=== PATIENT | female | born 1985 | race Hispanic/Latino ===

== ENCOUNTER 2016-12-02 10:45 | Inpatient (IN) | payer MEDICAID ==
[2016-12-02 10:55] VITALS: BMI 32.2
[2016-12-02] MEDS ORDERED: Sodium Chloride 0.9% 1,000 ML IV STA (11:06)
[2016-12-02] MEDS ORDERED: Morphine 4 mg/ml ISec IVP STA (11:06)
[2016-12-02 12:02] LABS: BASO # 0.03 K/mm3 (0.0-2.0); BASO % 0.3 % (0.0-3.0); EOS # 0.3 (0.0-0.7); EOS % 2.9 % (1.5-5.0); GRAN # 4.54 (1.4-6.5); GRAN % 52.8 % (50.0-68.0); HEMOGLOBIN 14.7 gm/dL (12.0-16.0); LYMPH # 3.4 (1.2-3.4); LYMPH % 39.4 % (22.0-35.0); MEAN CELL VOLUME 88.6 fL (80.0-105.0); MEAN CORPUSCULAR HEMOGLOBIN 32.2 pg (25.0-35.0); MEAN CORPUSCULAR HGB CONC 36.4 g/dl (31.0-37.0); MEAN PLATELET VOLUME 10.6 fl (7.0-11.0); MONO # 0.4 (0.1-0.6); MONO % 4.6 % (1.0-6.0); PLATELET COUNT 269 10^3/uL (120.0-450.0); RBC 4.56 10^6/uL (3.5-6.1); RED CELL DISTRIBUTION WIDTH 12.3 % (11.5-14.5); URINE BILIRUBIN NEGATIVE (NEGATIVE); URINE BLOOD LARGE (NEGATIVE); URINE GLUCOSE (UA) NEGATIVE (NEGATIVE); URINE LEUKOCYTE ESTERASE NEGATIVE Leu/uL (NEGATIVE); URINE NITRATE NEGATIVE (NEGATIVE); URINE PROTEIN 30 mg/dL (<30 mg/dL); URINE UROBILINOGEN 0.2 E.U./dL (<1 E.U./dL); WHITE BLOOD COUNT 8.6 10^3/ul (4.5-11.0)
[2016-12-02 12:03] LABS: URINE APPEARANCE TURBID (CLEAR); URINE COLOR YELLOW (YELLOW)
[2016-12-02 12:05] LABS: INR 0.99 (0.93-1.08); PARTIAL THROMBOPLASTIN TIME 27.9 Seconds (23.7-30.8); PROTHROMBIN TIME 10.7 Seconds (9.9-11.8)
[2016-12-02 12:11] LABS: URINE WBC 0 - 2 /hpf (0-6)
[2016-12-02 12:12] LABS: URINE BACTERIA MANY (NEG); URINE EPITHELIAL CELLS MANY /hpf (0-5)
[2016-12-02] MEDS ORDERED: Famotidine 20mg/50ml 20 MG in Premixed IV 50 EA IVPB STA (12:20)
[2016-12-02 12:37] LABS: ALB/GLOB RATIO 1.1 (1.1-1.8); ALBUMIN 3.6 g/dL (3.0-4.8); ALT/SGPT 39 U/L (7-56); AST/SGOT 26 U/L (15-39); BLOOD UREA NITROGEN 8 mg/dL (7-21); CALCIUM 8.5 mg/dL (8.4-10.5); GFR AFRICAN-AMERICAN > 60; GFR NON-AFRICAN AMERICAN > 60; LIPASE 74 U/L (23-300)
--- NOTE | 2016-12-02 14:12 | US ---
HISTORY: epigastric pain, r/o cholecystitis COMPARISON: Abdomen pelvis CT dated yes 06/06/2015. TECHNIQUE: Sonographic evaluation of the abdomen. FINDINGS: LIVER: Measures 14.9 cm. Normal echogenicity of the liver parenchyma. No mass. No intrahepatic bile duct dilatation. GALLBLADDER: Distended but otherwise appearing unremarkable. No gallstones. COMMON BILE DUCT: Measures 1.5 mm. No stones. No dilatation. PANCREAS: The pancreas is obscured by overlying bowel with remainder the pancreas appearing unremarkable. . RIGHT KIDNEY: Measures 10.5cm. Normal echogenicity. No calculus, mass, or hydronephrosis. LEFT KIDNEY: Measures 10.6cm. Normal echogenicity. No calculus, mass, or hydronephrosis. SPLEEN: Normal in size and contour. No mass. AORTA: No aneurysmal dilatation. IVC: Unremarkable. OTHER FINDINGS: None. IMPRESSION: The visualized portion of the pancreas unremarkable with tail obscured by overlying bowel gas. Remainder the examination appears unremarkable.
--- NOTE | 2016-12-02 14:27 | ED PDOC ---
Arrival/HPI - General Chief Complaint: Abdominal Pain Time Seen by Provider: 12/02/16 11:06 Historian: Patient - History of Present Illness Narrative History of Present Illness (Text): 12/02/16 14:36 31 yo F w/ pmh of colitis, s/p appendectomy, c/o 2 day h/o constant sharp epigastric pain radiating to the upper abdomen with N/V/D. Denies any fever, chills, SOB, chest pain, trauma, back pain, urinary symptoms, melena, hematochezia, travel, antibiotic use, h/o GB or PUD disease. Pt reports last episodes of colitis was in 2016, she was admitted to this hospital. States that she is following up with a GI doctor from [place], had a normal endoscopy and colonoscopy last year which was wnl. BARBARA Schaefer from [place] Past Medical History - Provider Review Nursing Documentation Reviewed: Yes - Infectious Disease Hx of Infectious Diseases: None - Tetanus Immunization Tetanus Immunization: Unknown - Past Medical History Past Medical History: No Previous - Cardiac Hx Hypertension: No - Pulmonary Hx Asthma: Yes Hx Pneumonia: Yes (at 2 mo old) - Neurological Hx Seizures: No - HEENT Hx HEENT Disorder: Yes (RX GLASSES) - Renal Hx Renal Disorder: No - Endocrine/Metabolic Hx Endocrine Disorders: No - Hematological/Oncological Hx Cancer: No - Musculoskeletal/Rheumatological Hx Falls: No - Gastrointestinal Hx Gastrointestinal Disorders: Yes (INGUINAL HERNIA REPAIR) - Genitourinary/Gynecological Hx Sexually Transmitted Diseases: No Hx Urinary Tract Infection: Yes Other/Comment: Pt. reports infection 4 months later after D&C procedure. - Psychiatric Hx Depression: No Hx Substance Use: No - Surgical History Hx Appendectomy: Yes (07/01/13) - Anesthesia Hx Anesthesia: Yes Hx Anesthesia Reactions: No Hx Malignant Hyperthermia: No - Suicidal Assessment Feels Threatened In Home Enviroment: No Family/Social History - Physician Review Nursing Documentation Reviewed: Yes Family/Social History: No Known Family HX Smoking Status: Former Smoker Hx Alcohol Use: Yes (socially) Hx Substance Use: No Hx Substance Use Treatment: No Allergies/Home Meds Allergies/Adverse Reactions: Allergies nitrofurantoin Allergy (Verified 12/02/16 11:42) ANAPHYLAXIS nitrofurantoin macrocrystalline [From Macrobid] Allergy (Verified 12/02/16 11:42 ) ANAPHYLAXIS Review of Systems - Review of Systems Constitutional: Normal. absent: Fatigue, Weight Change, Fevers Respiratory: Normal. absent: SOB, Cough, Sputum Cardiovascular: Normal. absent: Chest Pain, Palpitations, Edema Gastrointestinal: Normal, Abdominal Pain, Diarrhea, Vomiting. absent: Appetite Changes, Hematochezia, Hematemesis Genitourinary Female: Normal. absent: Dysuria, Frequency, Hematuria Musculoskeletal: Normal. absent: Arthralgias, Back Pain, Neck Pain Skin: Normal. absent: Rash, Pruritis, Skin Lesions Physical Exam Vital Signs Reviewed: Yes Vital Signs Temp Pulse Resp BP Pulse Ox 12/02/16 15:22 71 16 100/74 12/02/16 12:05 67 18 111/69 98 12/02/16 10:54 98.1 F 102 H 18 130/85 100 Temperature: Afebrile Blood Pressure: Normal Pulse: Tachycardic Respiratory Rate: Normal Appearance: Positive for: Well-Appearing, Non-Toxic, Comfortable Pain Distress: Moderate Mental Status: Positive for: Alert and Oriented X 3 - Systems Exam Head: Present: Atraumatic, Normocephalic Pupils: Present: PERRL Extroacular Muscles: Present: EOMI Conjunctiva: Present: Normal. No: Injected, Icteric Mouth: Present: Dry Pharnyx: Present: Normal. No: ERYTHEMA, EXUDATE Neck: Present: Normal Range of Motion. No: Meningeal Signs, MIDLINE TENDERNESS Respiratory/Chest: Present: Clear to Auscultation, Good Air Exchange. No: Respiratory Distress, Accessory Muscle Use, Wheezes, Rales, Rhonchi Cardiovascular: Present: Regular Rate and Rhythm, Normal S1, S2. No: Murmurs Abdomen: Present: Tenderness (+moderate diffuse abdominal tenderness, greatest in the epigastric area and RUQ, +yarbrough's. ), Normal Bowel Sounds, Guarding. No : Distention, Peritoneal Signs, Rebound, Mass/Organomegaly, Scars Back: Present: Normal Inspection. No: CVA Tenderness, Midline Tenderness Upper Extremity: Present: Normal Inspection, Normal ROM. No: Edema Lower Extremity: Present: Normal Inspection. No: Edema, Tenderness Neurological: Present: GCS=15, CN II-XII Intact Skin: Present: Warm, Dry, Normal Color. No: Rashes Medical Decision Making ED Course and Treatment: 12/02/16 14:25 31 yo F w/ pmh of colitis, c/o 2 day h/o constant sharp epigastric pain radiating to the upper abdomen with N/V/D. Based on history and exam : to r/o cholecystitis, cholelithiasis, consider dyspepsia. Plan: - Labs - UA - IV - pepcid / zofran / morphine - US abdomen - Pt placed in ED observation - Lab Interpretations I have reviewed the lab results: Yes Interpretation: All labs normal - RAD Interpretation Narrative RAD Interpretations (Text): 12/02/16 14:24 US abdomen: FINDINGS: LIVER: Measures 14.9 cm. Normal echogenicity of the liver parenchyma. No mass. No intrahepatic bile duct dilatation. GALLBLADDER: Distended but otherwise appearing unremarkable. No gallstones. COMMON BILE DUCT: Measures 1.5 mm. No stones. No dilatation. PANCREAS: The pancreas is obscured by overlying bowel with remainder the pancreas appearing unremarkable. . RIGHT KIDNEY: Measures 10.5cm. Normal echogenicity. No calculus, mass, or hydronephrosis. LEFT KIDNEY: Measures 10.6cm. Normal echogenicity. No calculus, mass, or hydronephrosis. SPLEEN: Normal in size and contour. No mass. AORTA: No aneurysmal dilatation. IVC: Unremarkable. OTHER FINDINGS: None. IMPRESSION: The visualized portion of the pancreas unremarkable with tail obscured by overlying bowel gas. Remainder the examination appears unremarkable. 12/02/16 17:11 CT A/P w/ IV contrast: FINDINGS: LOWER THORAX: Unremarkable. LIVER: Unremarkable. No gross lesion or ductal dilatation. GALLBLADDER AND BILE DUCTS: Unremarkable. PANCREAS: Unremarkable. No gross lesion or ductal dilatation. SPLEEN: Unremarkable. ADRENALS: Unremarkable. No mass. KIDNEYS AND URETERS: Unremarkable. No hydronephrosis. No solid mass. VASCULATURE: Unremarkable. No aortic aneurysm. BOWEL: There is some chronic mild mural thickening in the colon. There is some fatty infiltration of the bowel wall in the ascending colon. This finding can be seen in chronic inflammatory bowel disease. There is no acute mesenteric inflammation. APPENDIX: Removed PERITONEUM: Unremarkable. No free fluid. No free air. LYMPH NODES: Unremarkable. No enlarged lymph nodes. BLADDER: Unremarkable. REPRODUCTIVE: Unremarkable. BONES: No acute fracture. OTHER FINDINGS: None. IMPRESSION: Chronic mild mural thickening in the colon and fatty infiltration of the bowel wall in the ascending colon consistent with chronic inflammatory bowel disease. No acute mesenteric inflammation - Medication Orders Current Medication Orders: Discontinued Medications Famotidine (Pepcid) 20 mg IVP STAT STA Stop: 12/02/16 11:07 Last Admin: 12/02/16 12:24 Dose: Sodium Chloride (Sodium Chloride 0.9%) 1,000 mls @ 1,000 mls/hr IV .Q1H STA Stop: 12/02/16 12:05 Last Admin: 12/02/16 11:49 Dose: 1,000 mls/hr Famotidine 20 mg/ (Miscellaneous) 50 mls @ 100 mls/hr IVPB STAT STA Stop: 12/02/16 12:49 Last Admin: 12/02/16 12:29 Dose: 100 mls/hr Ketorolac Tromethamine (Toradol) 30 mg IVP STAT STA Stop: 12/02/16 15:03 Last Admin: 12/02/16 15:46 Dose: 30 mg Morphine Sulfate (Morphine) 4 mg IVP STAT STA Stop: 12/02/16 11:07 Last Admin: 12/02/16 11:48 Dose: 4 mg Re-Assess: EZ Pain Assessment Document 12/02/16 12:48 NH (Rec: 12/02/16 15:00 AK [id number]) Pain Reassessment Is this a pain reassessment? Yes Sleep Is patient sleeping during reassessment? No Presence of Pain Presence of Pain Yes Pain Scale Used Pain Scale Used Numeric Location Upper or Lower Upper Pain Location Body Site Abdomen Description Description Sharp Alleviating Factors/Management Medication Techniques Ondansetron HCl (Zofran Inj) 4 mg IVP STAT STA Stop: 12/02/16 11:07 Last Admin: 12/02/16 11:48 Dose: 4 mg ED OBSERVATION Date of observation admission: 12/02/16 Time of observation admission: 11:10 - Observation admission statement Patient is being placed in observation because:: Due to abdominal pain, which will order abdominal US to r/o cholecystitis. - Goals of Observation Goals of observation are:: To monitor pt's signs and symptoms. - Progress Note Progress Note: 12/02/16 13:00 Labs reviewed and are wnl, WBC and LFTs are all normal. Pt with improvement of pain, laying comfortably in bed. Pt sent to US. 12/02/16 14:28 US abdomen is wnl, with no evidence of acute cholecystitis and no cholelithiasis. On re-evaluation, pt reports improvement of pain, she is laying in bed in no acute distress. On exam, abdomen remains soft with moderate diffuse tenderness, no guarding or rebound. Considering pt's history and exam, CT A/P w/ IV contrast was ordered to r/o colitis. Given toradol IV for pain. 12/02/16 17:30 CT results reviewed and d/w the pt in great detail. On re-evaluation, pt continue to complain of pain. On exam, she is in moderate painful distress with abdomen remains soft, not distended, with diffuse abdominal tenderness. Given another dose of morphine 4 mg IV and zofran. Considering's pt's continued pain and PE, will keep the pt for inpt observation. Case d/w Dr. Gutiérrez, she agrees with plan. - PA / [employer]AY GUARD / Resident Statement / has reviewed & agrees with the documentation as recorded. Disposition/Present on Arrival - Present on Arrival Any Indicators Present on Arrival: No History of DVT/PE: No History of Uncontrolled Diabetes: No Urinary Catheter: No History of Decub. Ulcer: No History Surgical Site Infection Following: None - Disposition Have Diagnosis and Disposition been Completed?: Yes Diagnosis: Intractable abdominal pain Disposition: HOSPITALIZED Disposition Time: 11:10 (pt placed in ED observation) Patient Plan: Observation Patient Problems: Current Active Problems Problem Status Onset Abdominal pain Acute Condition: STABLE
--- NOTE | 2016-12-02 16:40 | CT ---
PROCEDURE: CT Abdomen and Pelvis with contrast HISTORY: diffuse abd pain, h/o colitis COMPARISON: None. TECHNIQUE: Contrast dose: 100 cc of Omni 350 Radiation dose: Total exam DLP = 583 mGy-cm. This CT exam was performed using one or more of the following dose reduction techniques: Automated exposure control, adjustment of the mA and/or kV according to patient size, and/or use of iterative reconstruction technique. FINDINGS: LOWER THORAX: Unremarkable. LIVER: Unremarkable. No gross lesion or ductal dilatation. GALLBLADDER AND BILE DUCTS: Unremarkable. PANCREAS: Unremarkable. No gross lesion or ductal dilatation. SPLEEN: Unremarkable. ADRENALS: Unremarkable. No mass. KIDNEYS AND URETERS: Unremarkable. No hydronephrosis. No solid mass. VASCULATURE: Unremarkable. No aortic aneurysm. BOWEL: There is some chronic mild mural thickening in the colon. There is some fatty infiltration of the bowel wall in the ascending colon. This finding can be seen in chronic inflammatory bowel disease. There is no acute mesenteric inflammation. APPENDIX: Removed PERITONEUM: Unremarkable. No free fluid. No free air. LYMPH NODES: Unremarkable. No enlarged lymph nodes. BLADDER: Unremarkable. REPRODUCTIVE: Unremarkable. BONES: No acute fracture. OTHER FINDINGS: None. IMPRESSION: Chronic mild mural thickening in the colon and fatty infiltration of the bowel wall in the ascending colon consistent with chronic inflammatory bowel disease. No acute mesenteric inflammation
--- NOTE | 2016-12-02 18:34 | CP.PCM.HP ---
<KarinSergey - Last Filed: 12/02/16 18:22> History of Present Illness - History of Present Illness History of Present Illness: 31 y/o F with PMH of endometriosis and HLD presents to the ED for a 2 day onset of worsening abdominal pain. Pt states she has had this pain intermittently for the past 3 years, but over the last 2 days the pain had become worse. Pt characterizes the pain as sharp and stabbing. Pain is located in RUQ, LUQ, and in her chest. The pain is intermittent and will randomly come on throughout the day. There are no alleviating or exacerbating factors. Pt did not take any medication at home to help with her symptoms. Pt does admit to having several episodes of nonbilious, nonbloody emesis, along with nonbloody diarrhea. Pt states she had a normal bowel movement 2 days ago and that her bowel movements are regular. Pt also admits to taking azithromycin several weeks ago for a sore throat. She is only compliant with her OCP at home. Pt states she first had these symptoms 3 years ago and at that time she had an appendectomy. Pt has had an endoscopy and colonoscopy in the past, both which were unremarkable for any pathology. Denies SOB, fevers, chills, dizziness, recent travel. PMH: Endometriosis, HLD Surgical Hx: Appendectomy, Hernia repair, LEEP procedure FMH: Breast cancer Social Hx: Denies alcohol, tobacco, or illicit drug use. No menstrual period for last 3 years. Medication: OCP, Atorvastatin 20 mg Allergies: Nitrofurantoin Present on Admission - Present on Admission Any Indicators Present on Admission: No Review of Systems - Constitutional Constitutional: Fatigue. absent: Chills, Fever, Headache - EENT Eyes: absent: Blurred Vision, Change in Vision - Cardiovascular Cardiovascular: Chest Pain. absent: Irregular Heart Rhythm - Respiratory Respiratory: absent: Cough, Dyspnea - Gastrointestinal Gastrointestinal: Abdominal Pain, Diarrhea, Vomiting - Genitourinary Genitourinary: absent: Dysuria, Hematuria - Integumentary Integumentary: absent: New Lesions, Rash - Neurological Neurological: absent: Numbness, Syncope, Tingling - Hematologic/Lymphatic Hematologic: absent: Easy Bleeding, Easy Bruising Past Patient History - Infectious Disease Hx of Infectious Diseases: None - Tetanus Immunizations Tetanus Immunization: Unknown - Past Medical History & Family History Past Medical History?: Yes - Past Social History Smoking Status: Former Smoker - CARDIAC Hx Hypertension: No - PULMONARY Hx Asthma: Yes Hx Pneumonia: Yes (at 2 mo old) - NEUROLOGICAL Hx Seizures: No - HEENT Hx HEENT Problems: Yes (RX GLASSES) - RENAL Hx Chronic Kidney Disease: No - ENDOCRINE/METABOLIC Hx Endocrine Disorders: No - HEMATOLOGICAL/ONCOLOGICAL Hx Cancer: No - MUSCULOSKELETAL/RHEUMATOLOGICAL Hx Falls: No - GASTROINTESTINAL Hx Gastrointestinal Disorders: Yes (INGUINAL HERNIA REPAIR) - GENITOURINARY/GYNECOLOGICAL Hx Sexually Transmitted Disorders: No Hx Urinary Tract Infection: Yes Other/Comment: Pt. reports infection 4 months later after D&C procedure. - PSYCHIATRIC Hx Depression: No Hx Substance Use: No - SURGICAL HISTORY Hx Appendectomy: Yes (07/01/13) - ANESTHESIA Hx Anesthesia: Yes Hx Anesthesia Reactions: No Hx Malignant Hyperthermia: No Meds Allergies/Adverse Reactions: Allergies Allergy/AdvReac Type Severity Reaction Status Date / Time nitrofurantoin Allergy ANAPHYLAXIS Verified 12/02/16 11:42 nitrofurantoin Allergy ANAPHYLAXIS Verified 12/02/16 11:42 macrocrystalline [From Macrobid] Physical Exam - Constitutional Appears: Well, No Acute Distress - Head Exam Head Exam: ATRAUMATIC, NORMAL INSPECTION, NORMOCEPHALIC - Eye Exam Eye Exam: EOMI, Normal appearance, PERRL - ENT Exam ENT Exam: Mucous Membranes Moist, Normal Exam - Neck Exam Neck exam: Positive for: Normal Inspection. Negative for: Lymphadenopathy - Respiratory Exam Respiratory Exam: Clear to Auscultation Bilateral, NORMAL BREATHING PATTERN. absent: Rhonchi, Wheezes - Cardiovascular Exam Cardiovascular Exam: RRR, +S1, +S2 - GI/Abdominal Exam GI & Abdominal Exam: Normal Bowel Sounds, Soft, Tenderness (Tenderness to light palpation diffusely throughout abdomen, mainly RUQ) - Extremities Exam Extremities exam: Negative for: calf tenderness, pedal edema - Neurological Exam Neurological exam: Alert, CN II-XII Intact, Oriented x3 - Psychiatric Exam Psychiatric exam: Normal Affect, Normal Mood - Skin Skin Exam: Intact, Normal Color, Warm Results - Vital Signs Recent Vital Signs: Last Vital Signs Temp 98.1 F 12/02/16 10:54 Pulse 71 12/02/16 15:22 Resp 16 12/02/16 15:22 BP 100/74 12/02/16 15:22 Pulse Ox 98 12/02/16 12:05 - Labs Result Diagrams: 12/02/16 11:38 12/02/16 12:19 Labs: Laboratory Results - last 24 hr 12/02/16 12/02/16 12/02/16 11:38 11:38 11:38 WBC 8.6 RBC 4.56 Hgb 14.7 Hct 40.4 MCV 88.6 MCH 32.2 MCHC 36.4 RDW 12.3 Plt Count 269 MPV 10.6 Gran % 52.8 Lymph % (Auto) 39.4 H [place] % (Auto) 4.6 Eos % (Auto) 2.9 Baso % (Auto) 0.3 Gran # 4.54 Lymph # 3.4 [place] # 0.4 Eos # 0.3 Baso # 0.03 PT 10.7 INR 0.99 APTT 27.9 Sodium Potassium Chloride Carbon Dioxide Anion Gap BUN Creatinine Est GFR ( Amer) Est GFR (Non-Af Amer) Random Glucose Calcium Total Bilirubin AST ALT Alkaline Phosphatase Total Protein Albumin Globulin Albumin/Globulin Ratio Lipase Urine Color Yellow Urine Appearance Turbid Urine pH 6.0 Ur Specific [place] >= 1.030 Urine Protein 30 H Urine Glucose (UA) Negative Urine Ketones Negative Urine Blood Large H Urine Nitrate Negative Urine Bilirubin Negative Urine Urobilinogen 0.2 Ur Leukocyte Esterase Negative Urine RBC 2 - 5 Urine WBC 0 - 2 Ur Epithelial Cells Many Urine Bacteria Many 12/02/16 12:19 WBC RBC Hgb Hct MCV MCH MCHC RDW Plt Count MPV Gran % Lymph % (Auto) [place] % (Auto) Eos % (Auto) Baso % (Auto) Gran # Lymph # [place] # Eos # Baso # PT INR APTT Sodium 140 Potassium 4.1 Chloride 107 Carbon Dioxide 23 Anion Gap 14 BUN 8 Creatinine 0.8 Est GFR ( Amer) > 60 Est GFR (Non-Af Amer) > 60 Random Glucose 84 Calcium 8.5 Total Bilirubin 0.7 AST 26 ALT 39 Alkaline Phosphatase 85 Total Protein 7.0 Albumin 3.6 Globulin 3.3 Albumin/Globulin Ratio 1.1 Lipase 74 Urine Color Urine Appearance Urine pH Ur Specific [place] Urine Protein Urine Glucose (UA) Urine Ketones Urine Blood Urine Nitrate Urine Bilirubin Urine Urobilinogen Ur Leukocyte Esterase Urine RBC Urine WBC Ur Epithelial Cells Urine Bacteria Assessment & Plan - Assessment and Plan (Free Text) Plan: 31 y/o F with PMH of endometriosis and HLD admitted for abdominal pain. Pt received abdominal ultrasound in the ED which showed no evidence of cholecystitis. Abdomen/pelvis CT showed chronic mild mural thickening in colon and fatty infiltration of the bowel wall of the ascending colon consistent with chronic IBD. Pt will be admitted to med/surg and have GI consulted. 1. Abdominal pain: Crohn's disease vs Ulcerative colitis vs Inflammatory bowel syndrome GI Consulted, Dr. Egan NS @ 100 cc/hr Ketorlac for pain Zofran for nausea Will send stool for C. Diff Liquid diet, will advance as tolerated 2. Hx of endometriosis Continue home OCP 3. Hx of HLD Will hold home Atorvastatin at this time, will restart when able to tolerate PO adequately 4. PPX Protonix Heparin Zofran Seen, reviewed, and discussed with attending Karin, PGY-2 <Chioma Lopez - Last Filed: 12/05/16 12:23> Results - Vital Signs Recent Vital Signs: Last Vital Signs Temp 97.9 F 12/04/16 08:31 Pulse 85 12/04/16 08:31 Resp 20 12/04/16 08:31 BP 123/85 12/04/16 08:31 Pulse Ox 99 12/04/16 08:31 - Labs Result Diagrams: 12/03/16 06:00 12/03/16 06:00 Attending/Attestation - Attestation I have fully participated in the care of the patient.: Yes I have reviewed all pertinent clinical information: Yes Notes (Text): 12/05/16 12:19 attending note; Patient seen and examined with resident in ER. Patient is a 31 year old Female with PMH of endometriosis and HLD admitted for abdominal pain. abdominal ultrasound showed no evidence of cholecystitis. Abdomen/pelvis CT showed chronic mild mural thickening in colon and fatty infiltration of the bowel wall of the ascending colon. patient had significant pain. Started on IV fluids. Nothing by mouth. GI evaluation requested. Patient needs close follow-up upon discharge. Follow-up with PMD Dr. Schaefer.
[2016-12-02] MEDS: Sodium Chloride 0.9% 1,000 ML IV SCH (18:50)
[2016-12-02 19:58] VITALS: O2SAT 99
[2016-12-03] MEDS: Sodium Chloride 0.9% 1,000 ML IV SCH ×2 (05:29→13:56)
[2016-12-03 06:49] LABS: ALBUMIN 3.1 g/dL (3.0-4.8); ALT/SGPT 34 U/L (7-56); AST/SGOT 23 U/L (15-39); BLOOD UREA NITROGEN 6 mg/dL (7-21); CALCIUM 7.8 mg/dL (8.4-10.5); GFR AFRICAN-AMERICAN > 60; GFR NON-AFRICAN AMERICAN > 60
[2016-12-03 06:59] LABS: HEMOGLOBIN 12.1 gm/dL (12.0-16.0); MEAN CELL VOLUME 89.3 fL (80.0-105.0); MEAN CORPUSCULAR HEMOGLOBIN 30.8 pg (25.0-35.0); MEAN CORPUSCULAR HGB CONC 34.5 g/dl (31.0-37.0); MEAN PLATELET VOLUME 10.1 fl (7.0-11.0); RBC 3.93 10^6/uL (3.5-6.1); RED CELL DISTRIBUTION WIDTH 12.5 % (11.5-14.5); WHITE BLOOD COUNT 7.2 10^3/ul (4.5-11.0)
--- NOTE | 2016-12-03 07:48 | CP.PCM.CON ---
<SamBob - Last Filed: 12/03/16 18:37> History of Present Illness - History of Present Illness History of Present Illness: PGY4 GI Initial Consult note Mary Kay Sánchez is a 31F w/ hx of endometrosis and recurrent abd pain who presents to Ed with abd pain. Pt states that the onset was 2 days ago and it awoke her from sleep. Pt states that it was initially tolerable but eventually worsened. She notes that it started in her pelvic area and radiated to RUQ and LUQ. She attempted to go to work the following morning but her symptoms worsened. She describes her pain has intermittent with peaks to about 10 out of 10 when she first presented. She does not recall any alleviating or aggravating factors. She notes that she occasionally feel slightly better after BM. Pt notes that this type of pain has been occurring for the past months to years. She has had a colonoscopy and EGD at [facility] in [facility] last, which she believes did not reveal anything diagnostic. Denies any recent travel, fever, chills, or diaphoresis. Denies nay BRBPR, hematemsis, or melena. Her initial CT of the abd revealed chronic mild mural thickening of the ascending and fatty infiltration. She decribes her BM as soft and form. She has reg BM 2-3 times a day. Denies any diarrhea, blood or mucus. ROS: 12- point review discusses, neg other than what is mentioned above PMH: Endometriosis, HLD Surgical Hx: Appendectomy, Hernia repair, LEEP procedure FMH: Breast cancer Social Hx: Denies alcohol, tobacco, or illicit drug use. No menstrual period for last 3 years. Medication: OCP, Atorvastatin 20 mg Allergies: Nitrofurantoin Endoscopy hx: 2016 colon and EGD: neg as per pt, performed at [facility] in [facility] Past Patient History - Infectious Disease Hx of Infectious Diseases: None - Tetanus Immunizations Tetanus Immunization: Unknown - Past Medical History & Family History Past Medical History?: Yes - Past Social History Smoking Status: Never Smoked - CARDIAC Hx Hypertension: No - PULMONARY Hx Respiratory Disorders: Yes Hx Asthma: Yes Hx Pneumonia: Yes - NEUROLOGICAL Hx Seizures: No - HEENT Hx HEENT Problems: Yes (RX GLASSES) - RENAL Hx Chronic Kidney Disease: No - ENDOCRINE/METABOLIC Hx Endocrine Disorders: No - HEMATOLOGICAL/ONCOLOGICAL Hx Cancer: Yes - MUSCULOSKELETAL/RHEUMATOLOGICAL Hx Falls: No - GASTROINTESTINAL Other/Comment: Colitis - GENITOURINARY/GYNECOLOGICAL Other/Comment: Endometriosis - PSYCHIATRIC Hx Substance Use: No - SURGICAL HISTORY Hx Appendectomy: Yes - ANESTHESIA Hx Anesthesia: Yes Hx Anesthesia Reactions: No Hx Malignant Hyperthermia: No Meds Allergies/Adverse Reactions: Allergies Allergy/AdvReac Type Severity Reaction Status Date / Time nitrofurantoin Allergy ANAPHYLAXIS Verified 12/02/16 11:42 nitrofurantoin Allergy ANAPHYLAXIS Verified 12/02/16 11:42 macrocrystalline [From Macrobid] - Medications Medications: Current Medications Heparin Sodium (Porcine) (Heparin) 5,000 units SC Q8 JOSE PRN Reason: Protocol Last Admin: 12/03/16 05:46 Dose: 5,000 units Sodium Chloride (Sodium Chloride 0.9%) 1,000 mls @ 100 mls/hr IV .Q10H [facility] Last Admin: 12/03/16 05:29 Dose: 100 mls/hr Ketorolac Tromethamine (Toradol) 30 mg IVP Q6H PRN PRN Reason: Pain, severe (8-10) Last Admin: 12/03/16 03:10 Dose: 30 mg Ondansetron HCl (Zofran Inj) 4 mg IVP Q4H PRN PRN Reason: Nausea/Vomiting Pantoprazole Sodium (Protonix Inj) 40 mg IVP DAILY [facility] Last Admin: 12/02/16 18:50 Dose: 40 mg Physical Exam - Constitutional Appears: Well, Non-toxic - Head Exam Head Exam: ATRAUMATIC, NORMOCEPHALIC - Eye Exam Eye Exam: Normal appearance - ENT Exam ENT Exam: Mucous Membranes Moist, Normal Exam - Neck Exam Neck exam: Positive for: Normal Inspection - Respiratory Exam Respiratory Exam: Clear to Auscultation Bilateral, NORMAL BREATHING PATTERN. absent: Rales, Rhonchi, Wheezes - Cardiovascular Exam Cardiovascular Exam: REGULAR RHYTHM, +S1, +S2 - GI/Abdominal Exam GI & Abdominal Exam: Normal Bowel Sounds, Soft, Tenderness (in the RUQ and LUQ) . absent: Distended, Firm, Guarding, Rigid - Extremities Exam Extremities exam: Positive for: normal inspection - Neurological Exam Neurological exam: Alert, Oriented x3 - Psychiatric Exam Psychiatric exam: Normal Affect, Normal Mood - Skin Skin Exam: Dry, Intact, Normal Color, Warm Results - Vital Signs Recent Vital Signs: Last Vital Signs Temp 98.1 F 12/02/16 21:49 Pulse 75 12/02/16 21:49 Resp 18 12/02/16 21:49 BP 123/75 12/02/16 21:49 Pulse Ox 99 12/02/16 19:57 - Labs Result Diagrams: 12/03/16 06:00 12/03/16 06:00 Labs: Laboratory Results - last 24 hr 12/02/16 12/02/16 12/02/16 11:38 11:38 11:38 WBC 8.6 RBC 4.56 Hgb 14.7 Hct 40.4 MCV 88.6 MCH 32.2 MCHC 36.4 RDW 12.3 Plt Count 269 MPV 10.6 Gran % 52.8 Lymph % (Auto) 39.4 H [place] % (Auto) 4.6 Eos % (Auto) 2.9 Baso % (Auto) 0.3 Gran # 4.54 Lymph # 3.4 [place] # 0.4 Eos # 0.3 Baso # 0.03 PT 10.7 INR 0.99 APTT 27.9 Sodium Potassium Chloride Carbon Dioxide Anion Gap BUN Creatinine Est GFR ( Amer) Est GFR (Non-Af Amer) Random Glucose Calcium Total Bilirubin AST ALT Alkaline Phosphatase Total Protein Albumin Globulin Albumin/Globulin Ratio Lipase Urine Color Yellow Urine Appearance Turbid Urine pH 6.0 Ur Specific Garvin >= 1.030 Urine Protein 30 H Urine Glucose (UA) Negative Urine Ketones Negative Urine Blood Large H Urine Nitrate Negative Urine Bilirubin Negative Urine Urobilinogen 0.2 Ur Leukocyte Esterase Negative Urine RBC 2 - 5 Urine WBC 0 - 2 Ur Epithelial Cells Many Urine Bacteria Many 12/02/16 12/03/16 12/03/16 12:19 06:00 06:00 WBC 7.2 RBC 3.93 Hgb 12.1 Hct 35.1 L MCV 89.3 MCH 30.8 MCHC 34.5 RDW 12.5 Plt Count 220 MPV 10.1 Gran % Lymph % (Auto) [place] % (Auto) Eos % (Auto) Baso % (Auto) Gran # Lymph # [place] # Eos # Baso # PT INR APTT 27.3 Sodium 140 Potassium 4.1 Chloride 107 Carbon Dioxide 23 Anion Gap 14 BUN 8 Creatinine 0.8 Est GFR ( Amer) > 60 Est GFR (Non-Af Amer) > 60 Random Glucose 84 Calcium 8.5 Total Bilirubin 0.7 AST 26 ALT 39 Alkaline Phosphatase 85 Total Protein 7.0 Albumin 3.6 Globulin 3.3 Albumin/Globulin Ratio 1.1 Lipase 74 Urine Color Urine Appearance Urine pH Ur Specific Garvin Urine Protein Urine Glucose (UA) Urine Ketones Urine Blood Urine Nitrate Urine Bilirubin Urine Urobilinogen Ur Leukocyte Esterase Urine RBC Urine WBC Ur Epithelial Cells Urine Bacteria 12/03/16 06:00 WBC RBC Hgb Hct MCV MCH MCHC RDW Plt Count MPV Gran % Lymph % (Auto) [place] % (Auto) Eos % (Auto) Baso % (Auto) Gran # Lymph # [place] # Eos # Baso # PT INR APTT Sodium 138 Potassium 3.9 Chloride 107 Carbon Dioxide 22 Anion Gap 13 BUN 6 L Creatinine 0.8 Est GFR ( Amer) > 60 Est GFR (Non-Af Amer) > 60 Random Glucose 87 Calcium 7.8 L Total Bilirubin 0.5 AST 23 ALT 34 Alkaline Phosphatase 71 Total Protein 6.1 Albumin 3.1 Globulin 3.0 Albumin/Globulin Ratio 1.0 L Lipase Urine Color Urine Appearance Urine pH Ur Specific Garvin Urine Protein Urine Glucose (UA) Urine Ketones Urine Blood Urine Nitrate Urine Bilirubin Urine Urobilinogen Ur Leukocyte Esterase Urine RBC Urine WBC Ur Epithelial Cells Urine Bacteria Assessment & Plan - Assessment and Plan (Free Text) Assessment: Mary Kay Sánchez is a 31F w/ hx of endometriosis and chronic abd pain who presents with abd pain. Etiology of the pain is acute on chronic and unclear. DDx: IBD vs functional vs colitis vs endometrial pain. Abd pain, acute on chronic DDx: IBD vs functional vs endometrial pain -advance diet as tolerated -obtain records from outpt GI -Hold abx for now -check c.diff and stool cultures -Will likely need a repeat outpt colonoscopy and endoscopy -follow-up with established GI -Pain management as per primary team -okay to d/c from GI standpoint d/w Dr. Egan <Vinnie Egan - Last Filed: 12/03/16 19:28> Meds - Medications Medications: Current Medications Heparin Sodium (Porcine) (Heparin) 5,000 units SC Q8 JOSE PRN Reason: Protocol Last Admin: 12/03/16 13:18 Dose: 5,000 units Sodium Chloride (Sodium Chloride 0.9%) 1,000 mls @ 100 mls/hr IV .Q10H [facility] Last Admin: 12/03/16 13:56 Dose: 100 mls/hr Ketorolac Tromethamine (Toradol) 30 mg IVP Q6H PRN PRN Reason: Pain, severe (8-10) Last Admin: 12/03/16 03:10 Dose: 30 mg Ondansetron HCl (Zofran Inj) 4 mg IVP Q4H PRN PRN Reason: Nausea/Vomiting Pantoprazole Sodium (Protonix Inj) 40 mg IVP DAILY [facility] Last Admin: 12/03/16 09:15 Dose: 40 mg Results - Vital Signs Recent Vital Signs: Last Vital Signs Temp 97.2 F L 12/03/16 16:00 Pulse 83 12/03/16 16:00 Resp 20 12/03/16 16:00 BP 115/77 12/03/16 16:00 Pulse Ox 99 12/03/16 16:00 - Labs Result Diagrams: 12/03/16 06:00 12/03/16 06:00 Attending/Attestation - Attestation I have personally seen and examined this patient.: Yes I have fully participated in the care of the patient.: Yes I have reviewed all pertinent clinical information: Yes Notes (Text): 12/03/16 19:25 31 year old female with h/o fibroids, endometriosis, chronic abdominal pain admitted with recurrent pain, CT evidence of right sided colitis. 1. Chronic abdominal pain 2. 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
[2016-12-03 08:14] VITALS: RESP 20
--- NOTE | 2016-12-03 14:41 | CP.PCM.CON ---
History of Present Illness - History of Present Illness History of Present Illness: Hospital Course: 31 y/o F with PMH of endometriosis and HLD presents to the ED for a 2 day onset of worsening abdominal pain. Pt states she has had this pain intermittently for the past 3 years, but over the last 2 days the pain had become worse. Pt characterizes the pain as sharp and stabbing. Pain is located in RUQ, LUQ, and in her chest. The pain is intermittent and will randomly come on throughout the day. There are no alleviating or exacerbating factors. Pt did not take any medication at home to help with her symptoms. Pt does admit to having several episodes of nonbilious, nonbloody emesis, along with nonbloody diarrhea. Pt states she had a normal bowel movement 2 days ago and that her bowel movements are regular. Pt also admits to taking azithromycin several weeks ago for a sore throat. She is only compliant with her OCP at home. Pt states she first had these symptoms 3 years ago and at that time she had an appendectomy. Pt has had an endoscopy and colonoscopy in the past, both which were unremarkable for any pathology. Denies SOB, fevers, chills, dizziness, recent travel. HPI: Pt s/e at bedside. Patient is still complaining of RUQ, Epigastric, and LUQ tenderness, both at rest and TTP. Patient further states that she had 3 bouts of diarrhea this morning. Patient would like to eat, we are waiting for GI recommendations. Review of Systems - Hematologic/Lymphatic Additional comments: ROS: Constitutional: pt denies fever, chills, generalized weakness ENT: pt denies dysphagia, otalgia, hearing deficit, rhinorrhea Eyes: pt denies sudden loss of vision, diplopia, blurred vision MSK: pt denies muscle stiffness, joint pain, extremity cramping Cardio: pt denies sob, heart murmur, cp Pulm: pt denies cough, hemoptysis, wheeze GI: +See hpi; pt denies loss of appetite, hematochezia : pt denies burning on urination, urinary frequency, hematuria, urinary urgency Neuro: pt denies paresis, paresthesia, dizziness, baxter, numbness, tingling Derm: pt denies skin changes, lesions, nail changes Endo: pt denies intolerance to heat/cold, diaphoresis, night sweats, polydipsia Psych: pt denies anxiety, depression, mood changes Past Patient History - Infectious Disease Hx of Infectious Diseases: None - Tetanus Immunizations Tetanus Immunization: Unknown - Past Medical History & Family History Past Medical History?: Yes - Past Social History Smoking Status: Never Smoked - CARDIAC Hx Hypertension: No - PULMONARY Hx Respiratory Disorders: Yes Hx Asthma: Yes Hx Pneumonia: Yes - NEUROLOGICAL Hx Seizures: No - HEENT Hx HEENT Problems: Yes (RX GLASSES) - RENAL Hx Chronic Kidney Disease: No - ENDOCRINE/METABOLIC Hx Endocrine Disorders: No - HEMATOLOGICAL/ONCOLOGICAL Hx Cancer: Yes - MUSCULOSKELETAL/RHEUMATOLOGICAL Hx Falls: No - GASTROINTESTINAL Other/Comment: Colitis - GENITOURINARY/GYNECOLOGICAL Other/Comment: Endometriosis - PSYCHIATRIC Hx Substance Use: No - SURGICAL HISTORY Hx Appendectomy: Yes - ANESTHESIA Hx Anesthesia: Yes Hx Anesthesia Reactions: No Hx Malignant Hyperthermia: No Meds Allergies/Adverse Reactions: Allergies Allergy/AdvReac Type Severity Reaction Status Date / Time nitrofurantoin Allergy ANAPHYLAXIS Verified 12/02/16 11:42 nitrofurantoin Allergy ANAPHYLAXIS Verified 12/02/16 11:42 macrocrystalline [From Macrobid] - Medications Medications: Current Medications Heparin Sodium (Porcine) (Heparin) 5,000 units SC Q8 JOSE PRN Reason: Protocol Last Admin: 12/03/16 13:18 Dose: 5,000 units Sodium Chloride (Sodium Chloride 0.9%) 1,000 mls @ 100 mls/hr IV .Q10H [facility] Last Admin: 12/03/16 13:56 Dose: 100 mls/hr Ketorolac Tromethamine (Toradol) 30 mg IVP Q6H PRN PRN Reason: Pain, severe (8-10) Last Admin: 12/03/16 03:10 Dose: 30 mg Ondansetron HCl (Zofran Inj) 4 mg IVP Q4H PRN PRN Reason: Nausea/Vomiting Pantoprazole Sodium (Protonix Inj) 40 mg IVP DAILY [facility] Last Admin: 12/03/16 09:15 Dose: 40 mg Physical Exam - Additional Findings Additional findings: Phys Exam: VS as below Constitutional: obese female, a&o x 4, nad Head and Neck: neck supple, no jvd, trachea midline, carotid midline, no cervical/head mass Eyes: pernell, nonicteric sclera, eom intact ENT: auditory acuity grossly intact, throat not congested, no nasal deformity Cardio: rrr, no m/r/g, no carotid bruit, nml s1, s2 Pulm: no accessory muscle use, equal nml breath sounds bilaterally, ctab Abd: +TTP RUQ, LUQ, Epigastric; s/nd, nbs x 4 q, no palpable masses : +Right Pelvic Tenderness Derm: no rashes, no ulcers, no lesions Extr: no edema, no cyanosis, no calf tenderness, no lesions, no varicosities Neuro: cn II-XII grossly intact, ue and le 5/5 muscle strength bilaterally, no los ue, le bilaterally and core Results - Vital Signs Recent Vital Signs: Last Vital Signs Temp 97.8 F 12/03/16 08:13 Pulse 68 12/03/16 12:00 Resp 20 12/03/16 08:13 BP 120/78 12/03/16 12:00 Pulse Ox 99 12/03/16 08:13 - Labs Result Diagrams: 12/03/16 06:00 12/03/16 06:00 Assessment & Plan - Assessment and Plan (Free Text) Assessment: A/P 31 y/o F with PMH of endometriosis and HLD admitted for abdominal pain. Pt received abdominal ultrasound in the ED which showed no evidence of cholecystitis. Abdomen/pelvis CT showed chronic mild mural thickening in colon and fatty infiltration of the bowel wall of the ascending colon consistent with chronic IBD. Pt is admitted to med/surg with GI consulted. 1. Acute on Chronic Abdominal pain 2/2 Colitis VS Crohn's disease VS Ulcerative colitis VS Inflammatory bowel syndrome VS endometrial pain VS functional - GI Consulted, Dr. Egan: recs appreciated - Per GI - advance diet as tolerated, obtain outpatient GI records, hold Abx, check c. diff and stool, outpatient endoscopy and colonoscopy, and pain management - Advanced to soft diet - NS @ 100 cc/hr - Ketorolac for pain - Zofran for nausea - Will send stool for C. Diff 2. Hemoglobin and HCT trending down - LMP: - Hg/HCT on admission: 14.7/40.4 - Hb/HCT now: 12.1/35.1 - Trend Hgb/HCT (baseline: ~14/40 3. 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 Hx of endometriosis - Continue home OCP 5. Hx of HLD - Restart atorvastatin 20 6. PPX - Protonix - Heparin - Zofran Seen, reviewed, and discussed with attending, Dr. Berry
--- NOTE | 2016-12-03 14:52 | CP.PCM.PN ---
<BradySohail - Last Filed: 12/03/16 14:52> Subjective - Date & Time of Evaluation Date of Evaluation: 12/03/16 Time of Evaluation: 07:00 - Subjective Subjective: Please disregard previous consult note by same author Hospital Course: 31 y/o F with PMH of endometriosis and HLD presents to the ED for a 2 day onset of worsening abdominal pain. Pt states she has had this pain intermittently for the past 3 years, but over the last 2 days the pain had become worse. Pt characterizes the pain as sharp and stabbing. Pain is located in RUQ, LUQ, and in her chest. The pain is intermittent and will randomly come on throughout the day. There are no alleviating or exacerbating factors. Pt did not take any medication at home to help with her symptoms. Pt does admit to having several episodes of nonbilious, nonbloody emesis, along with nonbloody diarrhea. Pt states she had a normal bowel movement 2 days ago and that her bowel movements are regular. Pt also admits to taking azithromycin several weeks ago for a sore throat. She is only compliant with her OCP at home. Pt states she first had these symptoms 3 years ago and at that time she had an appendectomy. Pt has had an endoscopy and colonoscopy in the past, both which were unremarkable for any pathology. Denies SOB, fevers, chills, dizziness, recent travel. HPI: Pt s/e at bedside. Patient is still complaining of RUQ, Epigastric, and LUQ tenderness, both at rest and TTP. Patient further states that she had 3 bouts of diarrhea this morning. Patient would like to eat, we are waiting for GI recommendations. Objective - Vital Signs/Intake and Output Vital Signs (last 24 hours): Temp Pulse Resp BP Pulse Ox 97.8 F 68 20 120/78 99 12/03/16 08:13 12/03/16 12:00 12/03/16 08:13 12/03/16 12:00 12/03/16 08:13 - Medications Medications: Current Medications Heparin Sodium (Porcine) (Heparin) 5,000 units SC Q8 JOSE PRN Reason: Protocol Last Admin: 12/03/16 13:18 Dose: 5,000 units Sodium Chloride (Sodium Chloride 0.9%) 1,000 mls @ 100 mls/hr IV .Q10H [facility] Last Admin: 12/03/16 13:56 Dose: 100 mls/hr Ketorolac Tromethamine (Toradol) 30 mg IVP Q6H PRN PRN Reason: Pain, severe (8-10) Last Admin: 12/03/16 03:10 Dose: 30 mg Ondansetron HCl (Zofran Inj) 4 mg IVP Q4H PRN PRN Reason: Nausea/Vomiting Pantoprazole Sodium (Protonix Inj) 40 mg IVP DAILY [facility] Last Admin: 12/03/16 09:15 Dose: 40 mg - Labs Labs: PT 10.7 Seconds (9.9-11.8) 12/02/16 11:38 INR 0.99 (0.93-1.08) 12/02/16 11:38 APTT 27.3 Seconds (23.7-30.8) 12/03/16 06:00 - Additional Findings Additional findings: Phys Exam: VS as below Constitutional: obese female, a&o x 4, nad Head and Neck: neck supple, no jvd, trachea midline, carotid midline, no cervical/head mass Eyes: pernell, nonicteric sclera, eom intact ENT: auditory acuity grossly intact, throat not congested, no nasal deformity Cardio: rrr, no m/r/g, no carotid bruit, nml s1, s2 Pulm: no accessory muscle use, equal nml breath sounds bilaterally, ctab Abd: +TTP RUQ, LUQ, Epigastric; s/nd, nbs x 4 q, no palpable masses : +Right Pelvic Tenderness Derm: no rashes, no ulcers, no lesions Extr: no edema, no cyanosis, no calf tenderness, no lesions, no varicosities Neuro: cn II-XII grossly intact, ue and le 5/5 muscle strength bilaterally, no los ue, le bilaterally and core Assessment and Plan - Assessment and Plan (Free Text) Assessment: A/P 31 y/o F with PMH of endometriosis and HLD admitted for abdominal pain. Pt received abdominal ultrasound in the ED which showed no evidence of cholecystitis. Abdomen/pelvis CT showed chronic mild mural thickening in colon and fatty infiltration of the bowel wall of the ascending colon consistent with chronic IBD. Pt is admitted to med/surg with GI consulted. 1. Acute on Chronic Abdominal pain 2/2 Colitis VS Crohn's disease VS Ulcerative colitis VS Inflammatory bowel syndrome VS endometrial pain VS functional - GI Consulted, Dr. Egan: recs appreciated - Per GI - advance diet as tolerated, obtain outpatient GI records, hold Abx, check c. diff and stool, outpatient endoscopy and colonoscopy, and pain management - Advanced to soft diet - NS @ 100 cc/hr - Ketorolac for pain - Zofran for nausea - Will send stool for C. Diff 2. 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 Hx of endometriosis - Continue home OCP 5. Hx of HLD - Restart atorvastatin 20 6. PPX - Protonix - Heparin - Zofran Sohail Abreu DO PGY - 1 Seen, reviewed, and discussed with attending, Dr. Berry <Jamal GOLDBERG,[facility] - Last Filed: 12/03/16 15:02> Objective - Vital Signs/Intake and Output Vital Signs (last 24 hours): Temp Pulse Resp BP Pulse Ox 97.8 F 68 20 120/78 99 12/03/16 08:13 12/03/16 12:00 12/03/16 08:13 12/03/16 12:00 12/03/16 08:13 - Medications Medications: Current Medications Heparin Sodium (Porcine) (Heparin) 5,000 units SC Q8 JOSE PRN Reason: Protocol Last Admin: 12/03/16 13:18 Dose: 5,000 units Sodium Chloride (Sodium Chloride 0.9%) 1,000 mls @ 100 mls/hr IV .Q10H [facility] Last Admin: 12/03/16 13:56 Dose: 100 mls/hr Ketorolac Tromethamine (Toradol) 30 mg IVP Q6H PRN PRN Reason: Pain, severe (8-10) Last Admin: 12/03/16 03:10 Dose: 30 mg Ondansetron HCl (Zofran Inj) 4 mg IVP Q4H PRN PRN Reason: Nausea/Vomiting Pantoprazole Sodium (Protonix Inj) 40 mg IVP DAILY [facility] Last Admin: 12/03/16 09:15 Dose: 40 mg - Labs Labs: PT 10.7 Seconds (9.9-11.8) 12/02/16 11:38 INR 0.99 (0.93-1.08) 12/02/16 11:38 APTT 27.3 Seconds (23.7-30.8) 12/03/16 06:00 Attending/Attestation - Attestation I have personally seen and examined this patient.: Yes I have fully participated in the care of the patient.: Yes I have reviewed all pertinent clinical information, including history, physical exam and plan: Yes Notes (Text): 12/03/16 14:56 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 Agreed with resident assessment and plan. 31 yrs F with PMH of endometriosis and HLD admitted for abdominal pain. Pt received abdominal ultrasound in the ED which showed no evidence of cholecystitis. Abdomen/pelvis CT showed chronic mild mural thickening in colon and fatty infiltration of the bowel wall of the ascending colon.Patient is still c/o diarrhea, stools for C diff colitis is negative, stool cultures are pending.As per patient she had Colonoscopy one year back which was normal, we will try to get patient medical record, will hold of antibiotics as recommended by GI.Patient is tolerating liquid diet at this time. Management plan was discussed in detail with patient Education was provided.
[2016-12-04] MEDS: Sodium Chloride 0.9% 1,000 ML IV SCH ×2 (06:06→12:44)
--- NOTE | 2016-12-04 08:11 | CP.PCM.PN ---
<Bob Vargas - Last Filed: 12/04/16 08:13> Subjective - Date & Time of Evaluation Date of Evaluation: 12/04/16 Time of Evaluation: 08:00 - Subjective Subjective: PGY4 GI follow-up Pt seen and examined bedside No overnight events able to tolerate reg diet does not have any abd pain Denies any fever, chills, or diaphoresis Denies any diarrhea 12-point ROS was conducted was was neg other than what was mentioned above Objective - Vital Signs/Intake and Output Vital Signs (last 24 hours): Temp Pulse Resp BP Pulse Ox 97.2 F L 83 20 115/77 99 12/03/16 16:00 12/03/16 16:00 12/03/16 16:00 12/03/16 16:00 12/03/16 16:00 Intake and Output: 12/04/16 12/04/16 06:59 18:59 Intake Total 1200 Balance 1200 - Medications Medications: Current Medications Heparin Sodium (Porcine) (Heparin) 5,000 units SC Q8 JOSE PRN Reason: Protocol Last Admin: 12/04/16 06:06 Dose: Not Given Sodium Chloride (Sodium Chloride 0.9%) 1,000 mls @ 100 mls/hr IV .Q10H [facility] Last Admin: 12/04/16 06:06 Dose: Not Given Ketorolac Tromethamine (Toradol) 30 mg IVP Q6H PRN PRN Reason: Pain, severe (8-10) Last Admin: 12/03/16 03:10 Dose: 30 mg Ondansetron HCl (Zofran Inj) 4 mg IVP Q4H PRN PRN Reason: Nausea/Vomiting Pantoprazole Sodium (Protonix Inj) 40 mg IVP DAILY [facility] Last Admin: 12/03/16 09:15 Dose: 40 mg - Labs Labs: PT 10.7 Seconds (9.9-11.8) 12/02/16 11:38 INR 0.99 (0.93-1.08) 12/02/16 11:38 APTT 27.3 Seconds (23.7-30.8) 12/03/16 06:00 - Head Exam Head Exam: ATRAUMATIC, NORMOCEPHALIC - Eye Exam Eye Exam: Normal appearance - ENT Exam ENT Exam: Mucous Membranes Moist, Normal Exam - Respiratory Exam Respiratory Exam: Clear to Ausculation Bilateral, NORMAL BREATHING PATTERN. absent: Rales, Rhonchi, Wheezes - Cardiovascular Exam Cardiovascular Exam: REGULAR RHYTHM, +S1, +S2 - GI/Abdominal Exam GI & Abdominal Exam: Soft, Normal Bowel Sounds. absent: Distended, Firm, Guarding, Tenderness, Organomegaly - Extremities Exam Extremities Exam: absent: Tenderness - Neurological Exam Neurological Exam: Alert, Awake, Oriented x3 - Psychiatric Exam Psychiatric exam: Normal Affect, Normal Mood - Skin Skin Exam: Dry, Intact, Normal Color, Warm Assessment and Plan - Assessment and Plan (Free Text) Assessment: 31 year old female with h/o fibroids, endometriosis, chronic abdominal pain admitted with recurrent pain, CT evidence of right sided colitis with no clear etiology. 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 Wu <Bryce GOLDBERG,Aditi - Last Filed: 12/04/16 14:33> Objective - Vital Signs/Intake and Output Vital Signs (last 24 hours): Temp Pulse Resp BP Pulse Ox 97.9 F 85 20 123/85 99 12/04/16 08:31 12/04/16 08:31 12/04/16 08:31 12/04/16 08:31 12/04/16 08:31 Intake and Output: 12/04/16 12/04/16 06:59 18:59 Intake Total 1200 Balance 1200 - Medications Medications: Current Medications Heparin Sodium (Porcine) (Heparin) 5,000 units SC Q8 JOSE PRN Reason: Protocol Last Admin: 12/04/16 13:17 Dose: Not Given Sodium Chloride (Sodium Chloride 0.9%) 1,000 mls @ 100 mls/hr IV .Q10H [facility] Last Admin: 12/04/16 12:44 Dose: Not Given Ketorolac Tromethamine (Toradol) 30 mg IVP Q6H PRN PRN Reason: Pain, severe (8-10) Last Admin: 12/03/16 03:10 Dose: 30 mg Ondansetron HCl (Zofran Inj) 4 mg IVP Q4H PRN PRN Reason: Nausea/Vomiting Pantoprazole Sodium (Protonix Inj) 40 mg IVP DAILY [facility] Last Admin: 12/04/16 09:32 Dose: 40 mg - Labs Labs: PT 10.7 Seconds (9.9-11.8) 12/02/16 11:38 INR 0.99 (0.93-1.08) 12/02/16 11:38 APTT 27.3 Seconds (23.7-30.8) 12/03/16 06:00 Attending/Attestation - Attestation I have personally seen and examined this patient.: Yes I have fully participated in the care of the patient.: Yes I have reviewed all pertinent clinical information, including history, physical exam and plan: Yes Notes (Text): 12/04/16 14:31 Patient seen with GI fellow on rounds. This is a 31 year old female with h/o fibroids, endometriosis, chronic abdominal pain admitted with recurrent pain, CT evidence of right sided colitis with no diarrhea, nor leukocytosis. Abdominal pain improved. Tolerating diet. Has had 2 colonoscopies in the past. Continue hormonal therapy for endometriosis and follow with outpatient GI. Thank you for letting us participate in the care of your patient
[2016-12-04 08:32] VITALS: BP 123/85; PULSE 85; TEMP 97.9
== END 2016-12-04 15:07 | disposition home or self-care (01) | DRG 814 ==
LOC: ED 10:45 → EROBSV 11:10 → ERH 18:03 → 3RSO 21:00 → OBSVTOIN 12-03 11:30
PROVIDERS: ADMIT Hospitalist; ATTEND Internal Medicine
DX: K52.9 Noninfective gastroenteritis and colitis, unspecified (principal); G89.29 Other chronic pain; E78.5 Hyperlipidemia, unspecified; N80.9 Endometriosis, unspecified; E66.9 Obesity, unspecified; Z90.49 Acquired absence of other specified parts of digestive tract; Z87.891 Personal history of nicotine dependence; Z80.3 Family history of malignant neoplasm of breast

== ENCOUNTER 2017-06-03 13:56 | Emergency (ER) | payer MEDICAID, OTHER ==
[2017-06-03 13:56] VITALS: BMI 32.2
[2017-06-03 15:11] VITALS: RESP 18
[2017-06-03] MEDS ORDERED: Sodium Chloride 0.9% 1,000 ML IV STA (15:22)
--- NOTE | 2017-06-03 15:27 | ED PDOC ---
Arrival/HPI - General Chief Complaint: Abdominal Pain Time Seen by Provider: 06/03/17 15:20 Historian: Patient - History of Present Illness Narrative History of Present Illness (Text): 06/03/17 15:24 31 y/o female, pmh including colitis and endometriosis, allergic to macrobid, surgical history of appendectomy, c/o upper abdominal pain with nausea/vomiting on and off x 1 week. Pt. stated that she has epigastric abdominal pain, radiating to her throat, no tearing sensation, no fever or chills, no flank pain , no numbness or tingling, no urinary symptoms, no palpitation, unable to have outpatient gallbladder sonogram, no other medical or psychological complaints. Past Medical History - Provider Review Nursing Documentation Reviewed: Yes - Infectious Disease Hx of Infectious Diseases: None - Tetanus Immunization Tetanus Immunization: Unknown - Past Medical History Past Medical History: No Previous - Cardiac Hx Hypertension: No - Pulmonary Hx Respiratory Disorders: Yes Hx Asthma: Yes Hx Pneumonia: Yes - Neurological Hx Seizures: No - HEENT Hx HEENT Disorder: Yes (RX GLASSES) - Renal Hx Renal Disorder: No - Endocrine/Metabolic Hx Endocrine Disorders: No - Hematological/Oncological Hx Cancer: Yes - Musculoskeletal/Rheumatological Hx Falls: No - Gastrointestinal Other/Comment: Colitis - Genitourinary/Gynecological Other/Comment: Endometriosis - Psychiatric Hx Depression: No Hx Substance Use: No - Surgical History Hx Appendectomy: Yes - Anesthesia Hx Anesthesia: Yes Hx Anesthesia Reactions: No Hx Malignant Hyperthermia: No - Suicidal Assessment Feels Threatened In Home Enviroment: No Family/Social History - Physician Review Nursing Documentation Reviewed: Yes Family/Social History: Unknown Family HX Smoking Status: Never Smoked Hx Alcohol Use: No Hx Substance Use: No Hx Substance Use Treatment: No Allergies/Home Meds Allergies/Adverse Reactions: Allergies nitrofurantoin Allergy (Verified 06/03/17 15:05) ANAPHYLAXIS nitrofurantoin macrocrystalline [From Macrobid] Allergy (Verified 06/03/17 15:05 ) ANAPHYLAXIS Review of Systems - Review of Systems Constitutional: absent: Fatigue, Fevers Eyes: absent: Vision Changes ENT: absent: Hearing Changes Respiratory: absent: SOB, Cough Cardiovascular: absent: Chest Pain Gastrointestinal: Abdominal Pain, Nausea, Vomiting. absent: Diarrhea Musculoskeletal: absent: Arthralgias Skin: absent: Rash, Pruritis Neurological: absent: Headache Psychiatric: absent: Anxiety, Depression, Suicidal Ideation Physical Exam Vital Signs Reviewed: Yes Vital Signs Pulse Resp BP Pulse Ox 06/03/17 20:49 74 18 110/78 98 06/03/17 18:06 75 18 105/70 100 06/03/17 15:10 87 18 107/59 L 98 Temperature: Afebrile Pulse: Regular Respiratory Rate: Normal Appearance: Positive for: Well-Appearing, Non-Toxic Pain Distress: Moderate Mental Status: Positive for: Alert and Oriented X 3 - Systems Exam Head: Present: Atraumatic, Normocephalic Pupils: Present: PERRL Extroacular Muscles: Present: EOMI Conjunctiva: Present: Normal Mouth: Present: Moist Mucous Membranes Neck: Present: Normal Range of Motion Respiratory/Chest: Present: Clear to Auscultation, Good Air Exchange. No: Respiratory Distress, Accessory Muscle Use Cardiovascular: Present: Regular Rate and Rhythm, Normal S1, S2. No: Murmurs Abdomen: Present: Tenderness (+epigastric tenderness and upper abdominal tenderness. ), Normal Bowel Sounds. No: Distention, Peritoneal Signs Back: Present: Normal Inspection Upper Extremity: Present: Normal Inspection. No: Cyanosis, Edema Lower Extremity: Present: Normal Inspection. No: Edema Neurological: Present: GCS=15, Speech Normal, Motor Func Grossly Intact, Gait Normal, Memory Normal Skin: Present: Warm, Dry, Normal Color. No: Rashes Psychiatric: Present: Alert, Oriented x 3, Normal Insight, Normal Concentration Medical Decision Making ED Course and Treatment: 06/03/17 15:27 -labs/ua/lipase/magnesium -gallbladder sonogram -CT abdomen and pelvis IV -IVF/pepcid/reglan -Observe and reassess 06/03/17 20:13 -Urine hcg negative -Labs are non-significant -UA show +UTI, IV rocephine ordered. -Gallbladder sonogram: No evidence of cholelithiasis or cholecystitis. Unremarkable examination. -Chest xray: No active disease. -CT abdomen and pelvis: No evidence of acute colitis, enteritis or bowel obstruction. Left adnexal cyst measuring 4.1 x 3.1 cm. Small follicles the right adnexa. -Transvaginal sonogram show: Within the posterior uterine wall, there is a submucosal hypoechoic fibroid measuring 1.5 x 1.3 x 1.6 cm. Within the left ovary, there is a 2.4 x 2.6 x 2.2 cm complex cyst with internal septation and mild echogenic debris. Follow-up ultrasonography is recommended. There is minimal hypoechoic fluid within the endocervical canal. A small hypoechoic nabothian cyst is visualized at the level of the cervix. -Pain resolved, feeling much better, will discharge home. -Discharge home with keflex, nexium, zofran, acetaminophen, follow up with your own pmd and obgyn plus GI within 2 days, return to the ER for any new or worsening signs or symptoms. - Lab Interpretations Lab Results: 06/03/17 15:50 06/03/17 15:50 Lab Results 06/03/17 15:50: Sodium 139, Potassium 3.8, Chloride 104, Carbon Dioxide 26, Anion Gap 13, BUN 10, Creatinine 0.8, Est GFR ( Amer) > 60, Est GFR (Non- Af Amer) > 60, Random Glucose 80, Calcium 9.6, Magnesium 2.0, Total Bilirubin 0.6, AST 48 H, ALT 51, Alkaline Phosphatase 74, Lactate Dehydrogenase 547, Total Creatine Kinase 90, Troponin I < 0.01, Total Protein 7.5, Albumin 4.3, Globulin 3.2, Albumin/Globulin Ratio 1.3, Lipase 86 06/03/17 15:50: WBC 11.2 H D, RBC 4.29, Hgb 13.9, Hct 39.2, MCV 91.4, MCH 32.4, MCHC 35.5, RDW 12.7, Plt Count 274, MPV 10.7, Gran % 55.1, Lymph % (Auto) 36.8 H , [place] % (Auto) 5.4, Eos % (Auto) 2.3, Baso % (Auto) 0.4, Gran # 6.14, Lymph # 4.1 H, [place] # 0.6, Eos # 0.3, Baso # 0.05 06/03/17 15:30: Urine Color Dark yellow, Urine Appearance Sl cloudy, Urine pH 6.0, Ur Specific [place] >= 1.030, Urine Protein Trace H, Urine Glucose (UA) Negative, Urine Ketones Negative, Urine Blood Small H, Urine Nitrate Positive H , Urine Bilirubin Negative, Urine Urobilinogen 0.2, Ur Leukocyte Esterase Trace H, Urine RBC 0 - 2, Urine WBC 1 - 3, Ur Epithelial Cells Many, Calcium Oxalate Crystal Few, Urine Bacteria Many I have reviewed the lab results: Yes - RAD Interpretation Radiology Orders: 06/03/17 15:22 ABD & PELVIS IV CONTRAST ONLY [CT] Stat GALL BLADDER [US] Stat 06/03/17 15:25 CHEST TWO VIEWS (PA/LAT) [RAD] Stat 06/03/17 18:07 TRANSVAGINAL [US] Stat Chest xray: HISTORY: medical clearance COMPARISON: No prior. TECHNIQUE: Chest PA and lateral FINDINGS: LUNGS: No active pulmonary disease. PLEURA: No significant pleural effusion identified. No pneumothorax apparent. CARDIOVASCULAR: Normal. OSSEOUS STRUCTURES: No significant abnormalities. VISUALIZED UPPER ABDOMEN: Normal. OTHER FINDINGS: None. IMPRESSION: No active disease. Gallbladder sonogram: HISTORY: epigastric abdominal pain x 1 week COMPARISON: None. TECHNIQUE: Sonographic evaluation of the right upper quadrant of the abdomen. FINDINGS: LIVER: Measures 16.1 cm in length. Normal echogenicity of the liver parenchyma. No mass. No intrahepatic bile duct dilatation. GALLBLADDER: Unremarkable. No gallstones. COMMON BILE DUCT: Measures 3.0 mm. No stones. No dilatation. PANCREAS: Unremarkable as visualized. No mass. No ductal dilatation. RIGHT KIDNEY: Measures 10 point a cm in length. Normal echogenicity. No calculus, mass, or hydronephrosis. AORTA: No aneurysmal dilatation. IVC: Unremarkable. OTHER FINDINGS: None . IMPRESSION: No evidence of cholelithiasis or cholecystitis. Unremarkable examination. CT abdomen and pelvis: PROCEDURE: CT Abdomen and Pelvis with contrast HISTORY: radiating upper abdominal pain/vomiting x 1 week COMPARISON: 12/02/2016 CT abdomen and pelvis 06/03/2017 right upper quadrant ultrasound TECHNIQUE: Contrast dose: 100 cc Omnipaque 350 Radiation dose: Total exam DLP = 418.54 mGy-cm. This CT exam was performed using one or more of the following dose reduction techniques: Automated exposure control, adjustment of the mA and/or kV according to patient size, and/or use of iterative reconstruction technique. FINDINGS: LOWER THORAX: Unremarkable. LIVER: Unremarkable. No gross lesion or ductal dilatation. GALLBLADDER AND BILE DUCTS: Unremarkable. PANCREAS: Unremarkable. No gross lesion or ductal dilatation. SPLEEN: Unremarkable. ADRENALS: Unremarkable. No mass. KIDNEYS AND URETERS: Unremarkable. No hydronephrosis. No solid mass. VASCULATURE: Unremarkable. No aortic aneurysm. BOWEL: Evidence of chronic inflammatory bowel disease primarily affecting ascending colon and transverse colon with relative sparing of descending colon. Similar distribution, less pronounced changes identified on the prior CT APPENDIX: Prior appendectomy. Clips at the base of the cecum. PERITONEUM: Unremarkable. No free fluid. No free air. LYMPH NODES: Unremarkable. No enlarged lymph nodes. BLADDER: Unremarkable. REPRODUCTIVE: Septated cyst/contiguous cysts left adnexa. Probable small follicles right adnexa. Unremarkable uterus. BONES: No acute fracture. OTHER FINDINGS: None. IMPRESSION: No evidence of acute colitis, enteritis or bowel obstruction. Left adnexal cyst measuring 4.1 x 3.1 cm. Small follicles the right adnexa. Transvaginal sonogram: Ultrasound TRANSVAGINAL Exam Date: 06/03/17 This imaging exam was performed at [facility] EXAM: US Pelvis Complete, Transabdominal US Pelvis, Transvaginal EXAM DATE/TIME: 06/03/2017 6:07 PM CLINICAL HISTORY: The patient age is 31 years old and is female; Pain; Abdominal pain; Left lower quadrant; Additional info: Lt. Cyst 4.1cm? ? Facility exam id and description: Us transve transvaginal TECHNIQUE: Real-time transabdominal and transvaginal pelvic ultrasound (complete) with image documentation. Transvaginal imaging was used for better evaluation of the endometrium and adnexa. COMPARISON: CT - ABD PELVIS IV CONTRAST ONLY 06/03/2017 5:19:09 PM, US - TRANSVAGINAL 10/19/2016 10:23:26 AM report only. These ultrasound images were not available for review. FINDINGS: Uterus/cervix: Within the posterior uterine wall, there is a submucosal hypoechoic fibroid measuring 1.5 x 1.3 x 1.6 cm. There is minimal hypoechoic fluid within the endocervical canal. A small hypoechoic nabothian cyst is visualized at the level of the cervix. The uterus measures 9.1 x 4.2 x 4.4 cm. The endometrial stripe measures 3-4 mm in thickness, which is within normal limits. The endometrial stripe measures 3-4 mm, which is within normal limits. There is a tiny hyperechoic focus in the submucosal region, suggestive of calcification. Right ovary: The right ovary measures 2.5 x 1.4 x 2.2 cm. Hypoechoic follicles are seen within the right ovary. There is physiologic blood flow within the right ovary. Left ovary: Within the left ovary, there is a 2.4 x 2.6 x 2.2 cm complex cyst with internal septation and mild echogenic debris. The left ovary measures 4.1 x 4.0 x 3.4 cm. There is physiologic blood flow within the left ovary. Free fluid: No free fluid. Bladder: Wall is normal thickness for degree of distention. IMPRESSION: 1. Within the posterior uterine wall, there is a submucosal hypoechoic fibroid measuring 1.5 x 1.3 x 1.6 cm. 2. Within the left ovary, there is a 2.4 x 2.6 x 2.2 cm complex cyst with internal septation and mild echogenic debris. Follow-up ultrasonography is recommended. 3. There is minimal hypoechoic fluid within the endocervical canal. A small hypoechoic nabothian cyst is visualized at the level of the cervix. 4. Additional findings described above. Dictated By: Mauricio Eduardo MD, MD Dictated Date/Time: 06/03/172006 Signed By: Mauricio Anderson MD Date Signed: 2006 Transcribed By: LOUIS Transcribe Date/Time : 06/03/172006 Automation Design Engineer: Radiologist - Medication Orders Current Medication Orders: Discontinued Medications Famotidine (Pepcid) 20 mg IVP STAT STA Stop: 06/03/17 15:30 Last Admin: 06/03/17 18:02 Dose: 20 mg IVP Administration Document 06/03/17 18:02 LA (Rec: 06/03/17 18:02 LA [id number]) Charges for Administration # of IVP Administrations 1 Sodium Chloride (Sodium Chloride 0.9%) 1,000 mls @ 999 mls/hr IV .Q1H1M STA Stop: 06/03/17 16:22 Last Admin: 06/03/17 18:03 Dose: 999 mls/hr eMAR Start Stop Document 06/03/17 18:03 LA (Rec: 06/03/17 18:03 LA [id number]) Intravenous Solution Start Date 06/03/17 Start Time 18:03 Ceftriaxone Sodium (Rocephin 1 Gram Ivpb) 1 gm in 100 mls @ 200 mls/hr IVPB STAT STA PRN Reason: Protocol Stop: 06/03/17 18:36 Last Admin: 06/03/17 18:10 Dose: 200 mls/hr eMAR Start Stop Document 06/03/17 18:10 LA (Rec: 06/03/17 19:42 LA [id number]) Intravenous Solution Start Date 06/03/17 Start Time 18:07 Metoclopramide HCl (Reglan) 10 mg IVP STAT STA Stop: 06/03/17 15:23 Last Admin: 06/03/17 18:02 Dose: 10 mg IVP Administration Document 06/03/17 18:02 LA (Rec: 06/03/17 18:03 LA [id number]) Charges for Administration # of IVP Administrations 1 Pantoprazole Sodium (Protonix Ec Tab) 40 mg PO STAT STA Stop: 06/03/17 20:23 Last Admin: 06/03/17 20:55 Dose: 40 mg - PA / HUMAN RESOURCES CLERK / Resident Statement / has reviewed & agrees with the documentation as recorded. Disposition/Present on Arrival - Present on Arrival Any Indicators Present on Arrival: No History of DVT/PE: No History of Uncontrolled Diabetes: No Urinary Catheter: No History of Decub. Ulcer: No History Surgical Site Infection Following: None - Disposition Have Diagnosis and Disposition been Completed?: Yes Diagnosis: UTI (urinary tract infection), Epigastric abdominal pain, Uterine fibroid, Ovarian cyst Disposition: HOME/ ROUTINE Disposition Time: 20:24 Patient Plan: Discharge Condition: IMPROVED Additional Instructions: -Discharge home with keflex, nexium, zofran, acetaminophen, follow up with your own pmd and obgyn plus GI within 2 days, return to the ER for any new or worsening signs or symptoms. Prescriptions: Acetaminophen 2 tab PO QID PRN #30 tab PRN Reason: Other Cephalexin [cephalexin] 500 mg PO TID #21 cap Esomeprazole Magnesium [Nexium] 20 mg PO DAILY #14 ecc Ondansetron [Zofran] 4 mg PO Q8H PRN #10 tab PRN Reason: Nausea/Vomiting Referrals: Alisia Schaefer MD [Primary Care Provider] - Follow up with primary [facility] [Outside] - Follow up with primary Aditi Wu MD, MD [Medical Doctor] - Follow up with primary Babatunde Childress MD [Staff Provider] - Follow up with primary Forms: [facility] (Macedonian), WORK NOTE
[2017-06-03 16:00] LABS: URINE BILIRUBIN NEGATIVE (NEGATIVE); URINE BLOOD SMALL (NEGATIVE); URINE GLUCOSE (UA) NEGATIVE (NEGATIVE); URINE LEUKOCYTE ESTERASE TRACE Leu/uL (NEGATIVE); URINE NITRATE POSITIVE (NEGATIVE); URINE PROTEIN TRACE mg/dL (<30 mg/dL); URINE UROBILINOGEN 0.2 E.U./dL (<1 E.U./dL)
[2017-06-03 16:05] LABS: URINE COLOR DARK YELLOW (YELLOW)
[2017-06-03 16:06] LABS: URINE APPEARANCE SL CLOUDY (CLEAR)
[2017-06-03 16:12] LABS: URINE BACTERIA MANY (NEG); URINE CALCIUM OXALATE CRYSTALS FEW /hpf; URINE EPITHELIAL CELLS MANY /hpf (0-5); URINE RBC 0 - 2 /hpf (0-2)
[2017-06-03 16:13] LABS: ALB/GLOB RATIO 1.3 (1.1-1.8); ALBUMIN 4.3 g/dL (3.0-4.8); ALT/SGPT 51 U/L (7-56); AST/SGOT 48 U/L (14-36); BLOOD UREA NITROGEN 10 mg/dL (7-21); CALCIUM 9.6 mg/dL (8.4-10.5); GFR AFRICAN-AMERICAN > 60; GFR NON-AFRICAN AMERICAN > 60; LIPASE 86 U/L (23-300)
[2017-06-03 16:14] LABS: BASO # 0.05 K/mm3 (0.0-2.0); BASO % 0.4 % (0.0-3.0); EOS # 0.3 (0.0-0.7); EOS % 2.3 % (1.5-5.0); GRAN # 6.14 (1.4-6.5); GRAN % 55.1 % (50.0-68.0); HEMOGLOBIN 13.9 g/dL (12.0-16.0); LYMPH # 4.1 (1.2-3.4); LYMPH % 36.8 % (22.0-35.0); MEAN CELL VOLUME 91.4 fl (80.0-105.0); MEAN CORPUSCULAR HEMOGLOBIN 32.4 pg (25.0-35.0); MEAN CORPUSCULAR HGB CONC 35.5 g/dl (31.0-37.0); MEAN PLATELET VOLUME 10.7 fl (7.0-11.0); MONO # 0.6 (0.1-0.6); MONO % 5.4 % (1.0-6.0); RBC 4.29 10^6/uL (3.5-6.1); RED CELL DISTRIBUTION WIDTH 12.7 % (11.5-14.5); WHITE BLOOD COUNT 11.2 10^3/ul (4.5-11.0)
[2017-06-03 16:25] LABS: TROPONIN I < 0.01 ng/mL
[2017-06-03] MEDS ORDERED: Iohexol 350 MG/100 ML VIAL ONE (16:40)
--- NOTE | 2017-06-03 16:54 | US ---
HISTORY: epigastric abdominal pain x 1 week COMPARISON: None. TECHNIQUE: Sonographic evaluation of the right upper quadrant of the abdomen. FINDINGS: LIVER: Measures 16.1 cm in length. Normal echogenicity of the liver parenchyma. No mass. No intrahepatic bile duct dilatation. GALLBLADDER: Unremarkable. No gallstones. COMMON BILE DUCT: Measures 3.0 mm. No stones. No dilatation. PANCREAS: Unremarkable as visualized. No mass. No ductal dilatation. RIGHT KIDNEY: Measures 10 point a cm in length. Normal echogenicity. No calculus, mass, or hydronephrosis. AORTA: No aneurysmal dilatation. IVC: Unremarkable. OTHER FINDINGS: None . IMPRESSION: No evidence of cholelithiasis or cholecystitis. Unremarkable examination.
--- NOTE | 2017-06-03 17:55 | RAD ---
HISTORY: medical clearance COMPARISON: No prior. TECHNIQUE: Chest PA and lateral FINDINGS: LUNGS: No active pulmonary disease. PLEURA: No significant pleural effusion identified. No pneumothorax apparent. CARDIOVASCULAR: Normal. OSSEOUS STRUCTURES: No significant abnormalities. VISUALIZED UPPER ABDOMEN: Normal. OTHER FINDINGS: None. IMPRESSION: No active disease.
--- NOTE | 2017-06-03 18:04 | CT ---
PROCEDURE: CT Abdomen and Pelvis with contrast HISTORY: radiating upper abdominal pain/vomiting x 1 week COMPARISON: 12/02/2016 CT abdomen and pelvis 06/03/2017 right upper quadrant ultrasound TECHNIQUE: Contrast dose: 100 cc Omnipaque 350 Radiation dose: Total exam DLP = 418.54 mGy-cm. This CT exam was performed using one or more of the following dose reduction techniques: Automated exposure control, adjustment of the mA and/or kV according to patient size, and/or use of iterative reconstruction technique. FINDINGS: LOWER THORAX: Unremarkable. LIVER: Unremarkable. No gross lesion or ductal dilatation. GALLBLADDER AND BILE DUCTS: Unremarkable. PANCREAS: Unremarkable. No gross lesion or ductal dilatation. SPLEEN: Unremarkable. ADRENALS: Unremarkable. No mass. KIDNEYS AND URETERS: Unremarkable. No hydronephrosis. No solid mass. VASCULATURE: Unremarkable. No aortic aneurysm. BOWEL: Evidence of chronic inflammatory bowel disease primarily affecting ascending colon and transverse colon with relative sparing of descending colon. Similar distribution, less pronounced changes identified on the prior CT APPENDIX: Prior appendectomy. Clips at the base of the cecum. PERITONEUM: Unremarkable. No free fluid. No free air. LYMPH NODES: Unremarkable. No enlarged lymph nodes. BLADDER: Unremarkable. REPRODUCTIVE: Septated cyst/contiguous cysts left adnexa. Probable small follicles right adnexa. Unremarkable uterus. BONES: No acute fracture. OTHER FINDINGS: None. IMPRESSION: No evidence of acute colitis, enteritis or bowel obstruction. Left adnexal cyst measuring 4.1 x 3.1 cm. Small follicles the right adnexa.
[2017-06-03] MEDS ORDERED: cefTRIAXone 1 gm 1 GM/100 ML BAG IVPB STA (18:07)
--- NOTE | 2017-06-03 20:08 | US ---
EXAM: US Pelvis Complete, Transabdominal US Pelvis, Transvaginal EXAM DATE/TIME: 06/03/2017 6:07 PM CLINICAL HISTORY: The patient age is 31 years old and is female; Pain; Abdominal pain; Left lower quadrant; Additional info: Lt. Cyst 4.1cm? ? Facility exam id and description: Us transve transvaginal TECHNIQUE: Real-time transabdominal and transvaginal pelvic ultrasound (complete) with image documentation. Transvaginal imaging was used for better evaluation of the endometrium and adnexa. COMPARISON: CT - ABD PELVIS IV CONTRAST ONLY 06/03/2017 5:19:09 PM, US - TRANSVAGINAL 10/19/2016 10:23:26 AM report only. These ultrasound images were not available for review. FINDINGS: Uterus/cervix: Within the posterior uterine wall, there is a submucosal hypoechoic fibroid measuring 1.5 x 1.3 x 1.6 cm. There is minimal hypoechoic fluid within the endocervical canal. A small hypoechoic nabothian cyst is visualized at the level of the cervix. The uterus measures 9.1 x 4.2 x 4.4 cm. The endometrial stripe measures 3-4 mm in thickness, which is within normal limits. The endometrial stripe measures 3-4 mm, which is within normal limits. There is a tiny hyperechoic focus in the submucosal region, suggestive of calcification. Right ovary: The right ovary measures 2.5 x 1.4 x 2.2 cm. Hypoechoic follicles are seen within the right ovary. There is physiologic blood flow within the right ovary. Left ovary: Within the left ovary, there is a 2.4 x 2.6 x 2.2 cm complex cyst with internal septation and mild echogenic debris. The left ovary measures 4.1 x 4.0 x 3.4 cm. There is physiologic blood flow within the left ovary. Free fluid: No free fluid. Bladder: Wall is normal thickness for degree of distention. IMPRESSION: 1. Within the posterior uterine wall, there is a submucosal hypoechoic fibroid measuring 1.5 x 1.3 x 1.6 cm. 2. Within the left ovary, there is a 2.4 x 2.6 x 2.2 cm complex cyst with internal septation and mild echogenic debris. Follow-up ultrasonography is recommended. 3. There is minimal hypoechoic fluid within the endocervical canal. A small hypoechoic nabothian cyst is visualized at the level of the cervix. 4. Additional findings described above.
[2017-06-03] MEDS ORDERED: Pantoprazole 40 mg EC Tab PO STA (20:22)
[2017-06-04 02:05] VITALS: BP 110/78; PULSE 74; O2SAT 98
== END 2017-06-03 20:49 | disposition home or self-care (01) ==
LOC: ED 13:56
DX: N39.0 Urinary tract infection, site not specified (principal); D25.9 Leiomyoma of uterus, unspecified; R10.13 Epigastric pain; N83.202 Unspecified ovarian cyst, left side
CPT/HCPCS: 71046; 74177; 76705; 76830; 80053; 81001; 82550; 83615; 83690; 83735; 84484; 85025; 87086; 96374; 96375; 99284; J0696; J2765; J7040; Q9967

== ENCOUNTER 2017-12-09 17:25 | Emergency (ER) | payer OTHER ==
[2017-12-09 17:49] VITALS: BP 109/74; PULSE 81; RESP 18; TEMP 97.7; O2SAT 100; BMI 31.2
--- NOTE | 2017-12-09 17:56 | ED PDOC ---
Arrival/HPI - General Chief Complaint: ENT Problem Time Seen by Provider: 12/09/17 17:43 Historian: Patient - History of Present Illness Narrative History of Present Illness (Text): 12/09/17 17:53 32 yo F c/o small painful lump to the anterior aspect of her L ear x3-4 days. Denies any ear pain, fever, URI, sore throat, headache, neck pain or rash. Past Medical History - Infectious Disease Hx of Infectious Diseases: None - Tetanus Immunization Tetanus Immunization: Unknown - Past Medical History Past Medical History: No Previous - Cardiac Hx Hypertension: No - Pulmonary Hx Respiratory Disorders: Yes Hx Asthma: Yes Hx Pneumonia: Yes - Neurological Hx Seizures: No - HEENT Hx HEENT Disorder: Yes (RX GLASSES) - Renal Hx Renal Disorder: No - Endocrine/Metabolic Hx Endocrine Disorders: No - Hematological/Oncological Hx Cancer: Yes - Musculoskeletal/Rheumatological Hx Falls: No - Gastrointestinal Other/Comment: Colitis - Genitourinary/Gynecological Other/Comment: Endometriosis - Psychiatric Hx Depression: No Hx Substance Use: No - Surgical History Hx Appendectomy: Yes - Anesthesia Hx Anesthesia: Yes Hx Anesthesia Reactions: No Hx Malignant Hyperthermia: No - Suicidal Assessment Feels Threatened In Home Enviroment: No Family/Social History Family/Social History: No Known Family HX Smoking Status: Never Smoked Hx Alcohol Use: No Hx Substance Use: No Hx Substance Use Treatment: No Allergies/Home Meds Allergies/Adverse Reactions: Allergies nitrofurantoin Allergy (Verified 06/03/17 15:05) ANAPHYLAXIS nitrofurantoin macrocrystalline [From Macrobid] Allergy (Verified 06/03/17 15:05 ) ANAPHYLAXIS Home Medications: Home Meds Medication Instructions Recorded Confirmed No Known Home Med 12/09/17 12/09/17 Review of Systems - Review of Systems Constitutional: absent: Fatigue, Weight Change, Fevers Eyes: absent: Vision Changes, Photophobia, Eye Pain ENT: absent: Hearing Changes, Tinnitus, Voice Changes, Sore Throat, Rhinorrhea, Epistaxis, Sinus Congestion Respiratory: absent: SOB, Cough, Sputum Skin: Skin Lesions. absent: Rash, Pruritis Neurological: absent: Headache, Dizziness Physical Exam Vital Signs Temp Pulse Resp BP Pulse Ox 12/09/17 18:00 97.7 F 81 18 109/74 100 12/09/17 17:39 97.7 F 81 18 109/74 100 Temperature: Afebrile Blood Pressure: Normal Pulse: Regular Respiratory Rate: Normal Appearance: Positive for: Well-Appearing, Non-Toxic, Comfortable Pain Distress: None Mental Status: Positive for: Alert and Oriented X 3 - Systems Exam Head: Present: Atraumatic, Normocephalic, Other (+0.5 cm round tender mobile mass to the L preauricular area, without erythema or edema) Pupils: Present: PERRL Extroacular Muscles: Present: EOMI Conjunctiva: Present: Normal. No: Injected, Icteric Ears: Present: Normal, NORMAL TM, Normal Canal. No: Erythema, TM Bulging Mouth: Present: Moist Mucous Membranes Pharnyx: Present: Normal. No: ERYTHEMA, EXUDATE Neck: Present: Normal Range of Motion. No: Meningeal Signs, MIDLINE TENDERNESS , Paraspinal Tenderness, Lymphadenopathy Upper Extremity: Present: Normal Inspection. No: Cyanosis, Edema Lower Extremity: Present: Normal Inspection. No: Edema Neurological: Present: GCS=15, CN II-XII Intact, Speech Normal, Motor Func Grossly Intact, Normal Sensory Function Skin: Present: Warm, Dry, Normal Color. No: Rashes, Laceration, Abscess Lymphatic: No: Cervical Adenopathy Psychiatric: Present: Alert, Oriented x 3, Normal Insight, Normal Concentration Medical Decision Making ED Course and Treatment: 12/09/17 17:56 32 yo F presents with possible small lipoma to the L pre-auricular area, unlikely lymphadenopathy, not an abscess. Patient instructed to follow-up with referral provided in 1-2 days without fail. Return to the emergency room at any time for any new or worsening symptoms. Patient states she fully agrees with and understands discharge instructions. States that she agrees with the plan and disposition. Verbalized and repeated discharge instructions and plan. I have given the patient opportunity to ask any additional questions. - PA / CHARGE MASTER COORDINATOR / Resident Statement MD/DO has reviewed & agrees with the documentation as recorded. Disposition/Present on Arrival - Present on Arrival Any Indicators Present on Arrival: No History of DVT/PE: No History of Uncontrolled Diabetes: No Urinary Catheter: No History of Decub. Ulcer: No History Surgical Site Infection Following: None - Disposition Have Diagnosis and Disposition been Completed?: Yes Diagnosis: Lipoma Disposition: HOME/ ROUTINE Disposition Time: 17:50 Patient Plan: Discharge Condition: STABLE Discharge Instructions (ExitCare): Lipoma Additional Instructions: Thank you for letting us take care of you today. You were treated for lipoma. The emergency medical care you received today was directed at your acute symptoms. Return to the Emergency Department if your symptoms worsen, do not improve, or if you have any other problems. Please call one of the physicians/clinics you have been referred to that are listed on the Patient Visit Information form that is included in your discharge packet. Bring any paperwork you were given at discharge with you along with any medications you are taking to your follow up visit. Our treatment cannot replace ongoing medical care by a primary care provider (PCP) outside of the emergency department. Thank you for allowing the [facility] team to be part of your care today. Referrals: Hemalatha Grant MD [Staff Provider] - Follow up with primary Forms: [facility] (Portuguese), WORK NOTE
== END 2017-12-09 18:00 | disposition home or self-care (01) ==
LOC: ED 17:25
DX: D17.0 Benign lipomatous neoplasm of skin and subcutaneous tissue of head, face and neck (principal)

== ENCOUNTER 2018-01-02 17:35 | Emergency (ER) | payer OTHER ==
[2018-01-02 17:35] VITALS: BMI 32.2
[2018-01-02 18:53] VITALS: RESP 18; TEMP 98.1; O2SAT 100
[2018-01-02] MEDS ORDERED: Sodium Chloride 0.9% 1,000 ML IV STA (18:54)
[2018-01-02 19:39] LABS: BASO # 0.02 K/mm3 (0.0-2.0); BASO % 0.2 % (0.0-3.0); EOS # 0.2 (0.0-0.7); EOS % 2.2 % (1.5-5.0); GRAN # 4.79 (1.4-6.5); GRAN % 46.1 % (50.0-68.0); HEMOGLOBIN 12.4 g/dL (12.0-16.0); LYMPH # 4.8 (1.2-3.4); LYMPH % 46.6 % (22.0-35.0); MEAN CELL VOLUME 89.3 fl (80.0-105.0); MEAN CORPUSCULAR HEMOGLOBIN 31.6 pg (25.0-35.0); MEAN CORPUSCULAR HGB CONC 35.4 g/dl (31.0-37.0); MEAN PLATELET VOLUME 10.7 fl (7.0-11.0); MONO # 0.5 (0.1-0.6); MONO % 4.9 % (1.0-6.0); RBC 3.92 10^6/uL (3.5-6.1); RED CELL DISTRIBUTION WIDTH 12.7 % (11.5-14.5); WHITE BLOOD COUNT 10.4 10^3/ul (4.5-11.0)
[2018-01-02 19:42] LABS: INR 1.02; PARTIAL THROMBOPLASTIN TIME 28.1 Seconds (25.1-36.5); PROTHROMBIN TIME 11.6 SECONDS (9.4-12.5)
[2018-01-02 19:43] LABS: ALB/GLOB RATIO 1.1 (1.1-1.8); ALBUMIN 3.9 g/dL (3.0-4.8); ALT/SGPT 22 U/L (7-56); AST/SGOT 20 U/L (14-36); BLOOD UREA NITROGEN 12 mg/dL (7-21); GFR NON-AFRICAN AMERICAN > 60; LIPASE 149 U/L (23-300)
[2018-01-02] MEDS ORDERED: Iohexol 350 MG/100 ML VIAL ONE (20:23)
[2018-01-02 20:43] LABS: PH,URINE 5.5 (4.7-8.0); URINE BILIRUBIN SMALL (NEGATIVE); URINE BLOOD LARGE (NEGATIVE); URINE GLUCOSE (UA) NEGATIVE (NEGATIVE); URINE LEUKOCYTE ESTERASE NEGATIVE Leu/uL (NEGATIVE); URINE PROTEIN 100 mg/dL (<30 mg/dL)
[2018-01-02 20:49] LABS: URINE APPEARANCE CLOUDY (CLEAR); URINE COLOR LIGHT RED (YELLOW)
[2018-01-02 21:05] LABS: URINE RBC TNTC /hpf (0-2)
--- NOTE | 2018-01-02 21:12 | ED PDOC ---
Arrival/HPI - General Chief Complaint: Abdominal Pain Time Seen by Provider: 01/02/18 18:53 Historian: Patient - History of Present Illness Narrative History of Present Illness (Text): 01/02/18 21:25 32yr old female presents today with a three-day history of worsening right sided abdominal pain. Patient states she has back pain and heavy bleeding. Patient states she has not had her period in many months because she takes control pills. She denies . She denies urinary symptoms. Patient states she has a history of endometriosis and multiple abdominal surgeries. She denies vomiting or diarrhea. She denies headaches dizziness or weakness. No chest pain or shortness of breath. No other complaints Time/Duration: Other (3 days) Symptom Onset: Gradual Symptom Course: Worsening Quality: Aching, Stabbing, Cramping Severity Level: 8, Moderate Past Medical History - Provider Review Nursing Documentation Reviewed: Yes - Travel History Have you recently traveled outside [place] w/in the past 3 mons?: No - Infectious Disease Hx of Infectious Diseases: None - Tetanus Immunization Tetanus Immunization: Unknown - Past Medical History Past Medical History: No Previous - Cardiac Hx Hypertension: No - Pulmonary Hx Respiratory Disorders: Yes Hx Asthma: Yes Hx Pneumonia: Yes - Neurological Hx Seizures: No - HEENT Hx HEENT Disorder: Yes (RX GLASSES) - Renal Hx Renal Disorder: No - Endocrine/Metabolic Hx Endocrine Disorders: No - Hematological/Oncological Hx Cancer: Yes - Musculoskeletal/Rheumatological Hx Falls: No - Gastrointestinal Other/Comment: Colitis - Genitourinary/Gynecological Other/Comment: Endometriosis - Psychiatric Hx Depression: No Hx Substance Use: No - Surgical History Hx Appendectomy: Yes - Anesthesia Hx Anesthesia: Yes Hx Anesthesia Reactions: No Hx Malignant Hyperthermia: No - Suicidal Assessment Feels Threatened In Home Enviroment: No Family/Social History - Physician Review Nursing Documentation Reviewed: Yes Family/Social History: Unknown Family HX Smoking Status: Never Smoked Hx Alcohol Use: No Hx Substance Use: No Hx Substance Use Treatment: No Allergies/Home Meds Allergies/Adverse Reactions: Allergies nitrofurantoin macrocrystalline [From Macrobid] Allergy (Verified 01/02/18 18:14 ) ANAPHYLAXIS Home Medications: Home Meds Medication Instructions Recorded Confirmed No Known Home Med 12/09/17 01/02/18 Review of Systems - Review of Systems Constitutional: absent: Fatigue, Fevers Respiratory: absent: SOB, Cough Cardiovascular: absent: Chest Pain, Palpitations Gastrointestinal: Abdominal Pain. absent: Constipation, Diarrhea, Nausea, Vomiting Genitourinary Female: Vaginal Bleeding. absent: Dysuria, Frequency, Hematuria Musculoskeletal: Back Pain. absent: Arthralgias, Neck Pain Skin: absent: Rash, Pruritis Neurological: absent: Headache, Dizziness Psychiatric: absent: Anxiety, Depression Physical Exam Vital Signs Reviewed: Yes Vital Signs Temp Pulse Resp BP Pulse Ox 01/02/18 18:10 98.1 F 85 18 114/81 100 01/02/18 17:35 98.1 F 85 18 114/81 100 Temperature: Afebrile Blood Pressure: Normal Pulse: Regular Respiratory Rate: Normal Appearance: Positive for: Well-Appearing, Non-Toxic, Comfortable Pain Distress: None Mental Status: Positive for: Alert and Oriented X 3 - Systems Exam Head: Present: Atraumatic Mouth: Present: Moist Mucous Membranes Neck: Present: Normal Range of Motion Respiratory/Chest: Present: Clear to Auscultation, Good Air Exchange. No: Respiratory Distress, Accessory Muscle Use Cardiovascular: Present: Regular Rate and Rhythm, Normal S1, S2. No: Murmurs Abdomen: Present: Tenderness (rlq tenderness), Guarding (voluntary). No: Distention, Normal Bowel Sounds, Peritoneal Signs, Rebound Genitourinary/Pelvic Exam: Present: Other (pt refused speculum examination; external examination reveals NO heavy hemorrhage.) Back: Present: Normal Inspection. No: CVA Tenderness, Midline Tenderness, Paraspinal Tenderness Upper Extremity: Present: Normal ROM Lower Extremity: Present: Normal ROM Neurological: Present: GCS=15, Speech Normal Skin: Present: Warm, Dry, Normal Color. No: Rashes Psychiatric: Present: Alert, Oriented x 3 Medical Decision Making ED Course and Treatment: 01/02/18 21:28 Patient is nontoxic well appearing with stable vital signs presenting with severe abdominal pain CBC: wnl CMP: wnl Lipase: wnl Urinalysis: + blood, + nitrates, no leukocytes, 1-3 wbcs pt refused transvaginal US; so transabdominal pelvic US was performed; FINDINGS: The uterus measures 8.4 x 4.8 x 4.5 cm while the endometrial stripe measures 4 mm in thickness. Small myometrial fibroids measure up to 1.5 cm. The right ovary measures 2.3 x 2.3 x 2.3 cm and contains a 1.7 cm cyst. The left ovary measures 3.2 x 2.5 x 2.4 cm and contains a 2.1 cm cyst. Both ovaries contain small follicles and demonstrate normal vascularity. There is no free fluid in the cul-de-sac. IMPRESSION: Small myometrial fibroids. No endometrial thickening. Small bilateral ovarian cysts likely physiologic. No torsion or free fluid. CAT scan: FINDINGS: There is no bowel inflammation, obstruction, free intraperitoneal air, or ascites. Prior appendectomy. Previously seen left ovarian cyst has resolved. No adnexal mass. Normal uterus. The lung bases, liver, biliary tree, gallbladder, pancreas, spleen, adrenal glands, kidneys, urinary bladder, and osseous structures are unremarkable. IMPRESSION: 1. No acute abdominal or pelvic abnormalities. 2. Resolution of the previously seen left ovarian cyst. Patient reassessment:pt non toxic well appearing; no distress. stable vitals. Discussed all results with patient in depth Advised follow-up with [facility] and GI specialist within the next 2 days. Advised immediate return if symptoms worsen persist or if new concerning symptoms develop advised patient to return immediately if she develops heavy vaginal bleeding dizziness weakness or if any other concerning symptoms develop Patient verbalizes understanding of discharge instructions and need for immediate followup. all aspects of this case were discussed the attending of record. Impression: Abdominal pain, vaginal bleeding, fibroid Motrin every 6 hours as needed for pain Follow up with the [facility] within the next 2 days Follow up with the GI specialist within the next 2 days. Follow up with primary care physician within the next 2 days Return immediately if symptoms worsen persist or if new symptoms develop: High fevers, increasing pain, vomiting, diarrhea or any other concerning symptoms develop Reassessment Condition: Re-examined, Improved - Lab Interpretations Lab Results: 01/02/18 19:20 01/02/18 19:20 Lab Results 01/02/18 20:00: Urine Color Light red, Urine Appearance Cloudy, Urine pH 5.5, Ur Specific [place] >= 1.030, Urine Protein 100 H, Urine Glucose (UA) Negative, Urine Ketones Trace H, Urine Blood Large H, Urine Nitrate Positive H, Urine Bilirubin Small H, Urine Urobilinogen 1.0 H, Ur Leukocyte Esterase Negative, Urine RBC Tntc, Urine WBC 1 - 3, Ur Epithelial Cells 6 - 8 01/02/18 19:20: Beta HCG, Quant < 2.39 01/02/18 19:20: PT 11.6, INR 1.02, APTT 28.1 01/02/18 19:20: WBC 10.4, RBC 3.92, Hgb 12.4, Hct 35.0 L, MCV 89.3, MCH 31.6, MCHC 35.4, RDW 12.7, Plt Count 244, MPV 10.7, Gran % 46.1 L, Lymph % (Auto) 46.6 H, Reynolds % (Auto) 4.9, Eos % (Auto) 2.2, Baso % (Auto) 0.2, Gran # 4.79, Lymph # (Auto) 4.8 H, Reynolds # (Auto) 0.5, Eos # (Auto) 0.2, Baso # (Auto) 0.02 01/02/18 19:20: Sodium 140, Potassium 4.0, Chloride 106, Carbon Dioxide 20 L, Anion Gap 17, BUN 12, Creatinine 0.9, Est GFR ( Amer) > 60, Est GFR (Non- Af Amer) > 60, Random Glucose 105, Calcium 9.0, Total Bilirubin 0.4, AST 20, ALT 22, Alkaline Phosphatase 68, Total Protein 7.3, Albumin 3.9, Globulin 3.4, Albumin/Globulin Ratio 1.1, Lipase 149 - RAD Interpretation Radiology Orders: 01/02/18 19:18 PELVIS ULTRASOUND [US] Stat 01/02/18 20:19 ABD & PELVIS IV CONTRAST ONLY [CT] Stat - Medication Orders Current Medication Orders: Discontinued Medications Acetaminophen (Tylenol 325mg Tab) 975 mg PO STAT STA Stop: 01/02/18 19:20 Last Admin: 01/02/18 20:20 Dose: 975 mg MAR Pain/Vitals Document 01/02/18 20:20 JOL (Rec: 01/02/18 20:20 [id number] Pain Reassessment Is This A Pain ReAssessment? No Sleep Is patient sleeping during reassessment? No Presence of Pain Presence of Pain Yes Pain Scale Used Pain Scale Used Numeric Location Left, Right or Bilateral Right Upper or Lower Lower Pain Location Body Site Abdomen Intensity 7 Sodium Chloride (Sodium Chloride 0.9%) 1,000 mls @ 999 mls/hr IV .Q1H1M STA Stop: 01/02/18 19:54 Last Admin: 01/02/18 19:30 Dose: 999 mls/hr eMAR Start Stop Document 01/02/18 19:30 JO (Rec: 01/02/18 20:21 [id number] Intravenous Solution Start Date 01/02/18 Start Time 19:30 End Date 01/02/18 End time 20:31 Total Infusion Time 61 Ketorolac Tromethamine (Toradol) 30 mg IVP STAT STA Stop: 01/02/18 20:20 Last Admin: 01/02/18 20:42 Dose: 30 mg MAR Pain Assessment Document 01/02/18 20:42 JO (Rec: 01/02/18 20:43 [id number] Pain Reassessment Is this a pain reassessment? No Sleep Is patient sleeping during reassessment? No Presence of Pain Presence of Pain Yes Pain Scale Used Pain Scale Used Numeric Location Left, Right or Bilateral Right Upper or Lower Lower Pain Location Body Site Abdomen Description Intensity of Pain at present 7 Acceptable Level of Pain 2 IVP Administration Document 01/02/18 20:42 JO (Rec: 01/02/18 20:43 [facility]-[id number]) Charges for Administration # of IVP Administrations 1 Disposition/Present on Arrival - Present on Arrival Any Indicators Present on Arrival: No History of DVT/PE: No History of Uncontrolled Diabetes: No Urinary Catheter: No History of Decub. Ulcer: No History Surgical Site Infection Following: None - Disposition Have Diagnosis and Disposition been Completed?: Yes Diagnosis: Abdominal pain, Fibroid, Vaginal bleeding Disposition: HOME/ ROUTINE Disposition Time: 21:47 Patient Plan: Discharge Condition: GOOD Discharge Instructions (ExitCare): Acute Abdomen (Belly Pain), Adult (DC), Uterine Fibroids Additional Instructions: Motrin 600mg every 6 hours as needed for pain Follow up with the [facility] within the next 2 days Follow up with the GI specialist within the next 2 days. Follow up with primary care physician within the next 2 days Return immediately if symptoms worsen persist or if new symptoms develop: High fevers, increasing pain, vomiting, diarrhea or any other concerning symptoms develop Referrals: Rafa Ryder MD [Staff Provider] - Follow up with primary Randy Moe [Medical Doctor] - Follow up with primary Fidelina Anderson MD [Medical Doctor] - Follow up with primary [facility] [Outside] - Follow up with primary Forms: [facility] (Polish), WORK NOTE
[2018-01-02 23:03] VITALS: BP 115/74; PULSE 78
--- NOTE | 2018-01-03 08:42 | CT ---
Date of service: 01/02/2018 PROCEDURE: CT Abdomen and Pelvis with contrast HISTORY: Abdominal pain COMPARISON: 06/03/2017. TECHNIQUE: CT scan of the abdomen and pelvis was performed after administration of intravenous contrast. Oral contrast was not administered. Coronal and sagittal reformatted images were obtained. Contrast dose: 100 cc Omnipaque 350 Radiation dose: Total exam DLP = 975.20 mGy-cm. This CT exam was performed using one or more of the following dose reduction techniques: Automated exposure control, adjustment of the mA and/or kV according to patient size, and/or use of iterative reconstruction technique. FINDINGS: LOWER THORAX: The visualized lungs are clear. LIVER: Mild hepatomegaly and diffuse fatty liver. No gross lesion or ductal dilatation. GALLBLADDER AND BILE DUCTS: The gallbladder is contracted. PANCREAS: Normal in size with homogeneous enhancement. No gross lesion or ductal dilatation. SPLEEN: Mild splenomegaly. ADRENALS: No discrete nodule. KIDNEYS AND URETERS: Normal in size with homogeneous enhancement. No hydronephrosis. No solid mass. VASCULATURE: No aortic aneurysm. BOWEL: Small bowel loops are normal in caliber. No obstruction. No gross mural thickening. APPENDIX: Surgically absent. PERITONEUM: No free fluid. No free air. LYMPH NODES: No enlarged lymph nodes. BLADDER: Unremarkable. REPRODUCTIVE: Unremarkable. BONES: No acute fracture. OTHER FINDINGS: None. IMPRESSION: No acute abdominal or pelvic abnormality. A preliminary report was provided by [facility].
--- NOTE | 2018-01-03 10:50 | US ---
Date of service: 01/02/2018 HISTORY: right sided pelvic pain COMPARISON: None available. TECHNIQUE: Transabdominal pelvic ultrasound was performed. FINDINGS: UTERUS: Measures 8.4 x 4.8 x 4.4 cm. Normal in size and appearance. There is a 1.4 x 1.3 x 1.5 cm posterior wall intramural fibroid and 0.7 x 0.4 x 0.6 cm anterior wall intramural fibroid. ENDOMETRIUM: Measures 4.0 mm in diameter. Unremarkable. CERVIX: There is a nabothian cyst in the cervix. RIGHT OVARY: Measures 2.3 x 2.3 x 2.2 cm. No solid mass. Normal flow. There is a 1.7 x 1.5 x 1.3 cm simple cyst. LEFT OVARY: Measures 3.1 x 2.4 x 2.4 cm. No solid mass. Normal flow. There is a 2.1 x 2.0 x 1.7 cm simple cyst. FREE FLUID: No significant free fluid noted. OTHER FINDINGS: None. IMPRESSION: Fibroid uterus, the larger posterior wall intramural fibroid measures 1.4 x 1.3 x 1.5 cm. 2.1 cm simple cyst in the left ovary. A preliminary report was provided by [facility].
== END 2018-01-02 22:40 | disposition home or self-care (01) ==
LOC: ED 17:35
DX: D25.9 Leiomyoma of uterus, unspecified (principal); N93.9 Abnormal uterine and vaginal bleeding, unspecified; R10.9 Unspecified abdominal pain
CPT/HCPCS: 74177; 76856; 80053; 81001; 83690; 84702; 85025; 85610; 85730; 96361; 96374; 99283; J1885; J7030; Q9967

== ENCOUNTER 2018-05-15 12:56 | Emergency (ER) | payer OTHER ==
[2018-05-15 12:56] VITALS: BMI 32.2
[2018-05-15 13:25] VITALS: RESP 18; O2SAT 99
[2018-05-15] MEDS ORDERED: Sodium Chloride 0.9% 1,000 ML IV STA (14:07)
[2018-05-15 14:56] LABS: BASO # 0.05 K/mm3 (0.0-2.0); BASO % 0.5 % (0.0-3.0); EOS # 0.2 (0.0-0.7); EOS % 1.8 % (1.5-5.0); GRAN # 6.01 (1.4-6.5); GRAN % 58.5 % (50.0-68.0); HEMOGLOBIN 13.8 g/dL (12.0-16.0); LYMPH # 3.6 (1.2-3.4); MEAN CELL VOLUME 89.5 fl (80.0-105.0); MEAN CORPUSCULAR HEMOGLOBIN 31.4 pg (25.0-35.0); MEAN PLATELET VOLUME 10.5 fl (7.0-11.0); MONO # 0.4 (0.1-0.6); MONO % 4.2 % (1.0-6.0); RBC 4.4 10^6/uL (3.5-6.1); RED CELL DISTRIBUTION WIDTH 12.4 % (11.5-14.5); WHITE BLOOD COUNT 10.3 10^3/uL (4.5-11.0)
[2018-05-15 15:02] LABS: ALB/GLOB RATIO 1.2 (1.1-1.8); ALBUMIN 4.6 g/dL (3.0-4.8); ALT/SGPT 33 U/L (7-56); AMYLASE 104 U/L (35-125); AST/SGOT 34 U/L (14-36); BLOOD UREA NITROGEN 12 mg/dL (7-21); CALCIUM 9.6 mg/dL (8.4-10.5); GFR NON-AFRICAN AMERICAN > 60; LIPASE 93 U/L (23-300)
[2018-05-15 15:03] LABS: PH,URINE 7.5 (4.7-8.0); URINE BILIRUBIN NEGATIVE (NEGATIVE); URINE BLOOD SMALL (NEGATIVE); URINE GLUCOSE (UA) NEGATIVE (NEGATIVE); URINE LEUKOCYTE ESTERASE SMALL Leu/uL (NEGATIVE); URINE PROTEIN NEGATIVE mg/dL (<30 mg/dL); URINE UROBILINOGEN 0.2 E.U./dL (<1 E.U./dL)
[2018-05-15 15:04] LABS: INR 1.04; PROTHROMBIN TIME 11.9 SECONDS (9.4-12.5)
[2018-05-15 15:06] LABS: URINE APPEARANCE CLEAR (CLEAR); URINE COLOR YELLOW (YELLOW)
[2018-05-15 15:12] LABS: URINE BACTERIA MANY /hpf
[2018-05-15 15:13] LABS: URINE AMORPHOUS SEDIMENT FEW /hpf
[2018-05-15] MEDS ORDERED: Potassium Chloride 20 mEq ER Tab PO STA (15:29)
--- NOTE | 2018-05-15 16:01 | US ---
Date of service: 05/15/2018 HISTORY: lower abdominal pain, h/o endometriosis COMPARISON: Pelvic ultrasound performed 01/02/18 TECHNIQUE: Transvaginal pelvic ultrasound FINDINGS: UTERUS: Measures 7.3 x 4.6 x 5.0 cm. Anteverted. ENDOMETRIUM: Measures 2 mm in diameter. CERVIX: No cervical abnormality identified. RIGHT OVARY: Measures 3.0 x 2.0 x 2.8 cm. Blood flow is demonstrated. LEFT OVARY: Not visualized. FREE FLUID: No significant free fluid noted. OTHER FINDINGS: None. IMPRESSION: The left ovary is not visualized. 1.6 cm posterior uterine fibroid.
--- NOTE | 2018-05-15 16:37 | ED PDOC ---
Arrival/HPI - General Chief Complaint: GI Problem Time Seen by Provider: 05/15/18 13:00 Historian: Patient - History of Present Illness Narrative History of Present Illness (Text): 32 y/o female with PMH of endometriosis, fibroids, anxiety who presents to ED c/o vomiting x 1.5 weeks. Admits to 2-3 non bloody, non bilious emesis daily. Associated frontal headache today. States she began antibiotics today for a UTI diagnosed by her OBGYN that she saw approximately 1 week ago, unable to recall the name of the drug. Tolerating PO and having BM per baseline. 1 episode of vaginal bleeding lasting 3 days last week, which is unusual for patient. Does not typically menstruate secondary to OCPs. No concern for STI. Denies fever, ch ills, diarrhea, constipation, back pain, changes in appetite, neck pain, vaginal discomfort, pelvic pain, chest pain, SOB, dizziness, vision changes, rash, or any other associated symptoms. Past Medical History - Provider Review Nursing Documentation Reviewed: Yes - Infectious Disease Hx of Infectious Diseases: None - Tetanus Immunization Tetanus Immunization: Unknown - Past Medical History Past Medical History: No Previous - Cardiac Hx Hypertension: No - Pulmonary Hx Respiratory Disorders: Yes Hx Asthma: Yes Hx Pneumonia: Yes - Neurological Hx Seizures: No - HEENT Hx HEENT Disorder: Yes (RX GLASSES) - Renal Hx Renal Disorder: No - Endocrine/Metabolic Hx Endocrine Disorders: No - Hematological/Oncological Hx Cancer: Yes - Musculoskeletal/Rheumatological Hx Falls: No - Gastrointestinal Other/Comment: Colitis - Genitourinary/Gynecological Other/Comment: Endometriosis - Psychiatric Hx Depression: No Hx Substance Use: No - Surgical History Hx Appendectomy: Yes - Anesthesia Hx Anesthesia: Yes Hx Anesthesia Reactions: No Hx Malignant Hyperthermia: No - Suicidal Assessment Feels Threatened In Home Enviroment: No Family/Social History - Physician Review Nursing Documentation Reviewed: Yes Family/Social History: No Known Family HX Smoking Status: Never Smoked Hx Alcohol Use: No Hx Substance Use: No Hx Substance Use Treatment: No Allergies/Home Meds Allergies/Adverse Reactions: Allergies nitrofurantoin macrocrystalline [From Macrobid] Allergy (Verified 01/02/18 18:14) ANAPHYLAXIS Review of Systems - Review of Systems Constitutional: Normal. absent: Fatigue, Fevers Eyes: Normal. absent: Vision Changes ENT: Normal. absent: Sore Throat, Sinus Congestion Respiratory: Normal. absent: SOB, Cough Cardiovascular: Normal. absent: Chest Pain, Palpitations Gastrointestinal: Abdominal Pain, Nausea, Vomiting. absent: Stool Changes, Appetite Changes Genitourinary Female: Vaginal Bleeding. absent: Dysuria, Frequency, Vaginal Discharge Musculoskeletal: Normal. absent: Back Pain Skin: Normal. absent: Rash Neurological: Headache. absent: Dizziness, Disequilibrium Endocrine: Normal Hemo/Lymphatic: Normal Psychiatric: Normal Physical Exam Vital Signs Reviewed: Yes Vital Signs Temp Pulse Resp BP Pulse Ox 05/15/18 12:56 98.6 F 80 18 108/74 99 Temperature: Afebrile Blood Pressure: Normal Pulse: Regular Respiratory Rate: Normal Appearance: Positive for: Well-Appearing, Non-Toxic, Comfortable Pain Distress: None Mental Status: Positive for: Alert and Oriented X 3 - Systems Exam Head: Present: Atraumatic, Normocephalic Pupils: Present: PERRL Extroacular Muscles: Present: EOMI Conjunctiva: Present: Normal Mouth: Present: Moist Mucous Membranes Neck: Present: Normal Range of Motion. No: Meningeal Signs Respiratory/Chest: Present: Clear to Auscultation, Good Air Exchange. No: Respiratory Distress, Accessory Muscle Use Cardiovascular: Present: Regular Rate and Rhythm, Normal S1, S2, Peripheal Pulses Present. No: Murmurs Abdomen: Present: Tenderness (generalized, worst periumbilically), Normal Bowel Sounds. No: Distention, Peritoneal Signs, Rebound, Guarding Back: Present: Normal Inspection. No: CVA Tenderness Upper Extremity: Present: Normal Inspection, Normal ROM, NORMAL PULSES, Neurovascularly Intact, Capillary Refill < 2s. No: Cyanosis, Edema Lower Extremity: Present: Normal Inspection, NORMAL PULSES, Normal ROM, Neurovascularly Intact, Capillary Refill < 2 s. No: Edema Neurological: Present: GCS=15, CN II-XII Intact, Speech Normal, Motor Func Grossly Intact, Normal Sensory Function, Gait Normal Skin: Present: Warm, Dry, Normal Color. No: Rashes Psychiatric: Present: Alert, Oriented x 3, Normal Insight, Normal Concentration, Normal Mood, Anxious Medical Decision Making ED Course and Treatment: Initial Plan: * CBC, CMP * Lipase * UA, culture * CT Abd/Pelvis * TV US * IVF * Reglan * Toradol CBC, Coags unremarkable CMP shows mild hypokalemia at 3.3, 40mEq PO KCl ordered. Pt informed. Advise followup with PMD. UA suspicious for UTI, patient on antibiotics per OBGYN, advised to continue. No concern for STI. No vaginal discharge, odor, discomfort, or pruritis. TV US does not visualize left ovary. Patient not having pain in LLQ. No left sided back pain. Advised to followup with OBGYN. 16:37 Reports complete resolution of symptoms, including headache, nausea, and abdominal pain. Patient appears very well, resting comfortably in stretcher, talking on cellphone with friend, laughing. Tolerated PO without difficulty. No vomiting in ED. Diagnostic testing results and plan of care discussed with patient. Strict instructions given regarding prescription use, importance of followup, and signs/symptoms to return to ER including worsening abdominal pain, neck pain, vision changes, or any other new/worsening symptoms. Pt verbalized understanding of discussion. Patient is A&Ox3, ambluating with steady gait, with vital signs stable for discharge. - Lab Interpretations Lab Results: 05/15/18 14:00 05/15/18 14:00 Lab Results 05/15/18 14:30: Urine Color Yellow, Urine Appearance Clear, Urine pH 7.5, Ur Specific [place] 1.020, Urine Protein Negative, Urine Glucose (UA) Negative, Urine Ketones Negative, Urine Blood Small H, Urine Nitrate Negative, Urine Bilirubin Negative, Urine Urobilinogen 0.2, Ur Leukocyte Esterase Small H, Urine RBC 5 - 10 H, Urine WBC 10 - 15 H, Ur Epithelial Cells 6 - 8 H, Amorphous Sediment Few, Urine Bacteria Many, Urine Other Uyeast 05/15/18 14:00: PT 11.9, INR 1.04, APTT 30.0 05/15/18 14:00: Sodium 137, Potassium 3.3 L, Chloride 105, Carbon Dioxide 25, Anion Gap 11, BUN 12, Creatinine 0.9, Est GFR ( Amer) > 60, Est GFR (Non- Af Amer) > 60, Random Glucose 81, Calcium 9.6, Total Bilirubin 0.8, AST 34, ALT 33, Alkaline Phosphatase 83, Total Protein 8.3, Albumin 4.6, Globulin 3.7, Albumin/Globulin Ratio 1.2, Amylase 104, Lipase 93 05/15/18 14:00: WBC 10.3, RBC 4.40, Hgb 13.8, Hct 39.4, MCV 89.5, MCH 31.4, MCHC 35.0, RDW 12.4, Plt Count 228, MPV 10.5, Gran % 58.5, Lymph % (Auto) 35.0, [place] % (Auto) 4.2, Eos % (Auto) 1.8, Baso % (Auto) 0.5, Gran # 6.01, Lymph # (Auto) 3.6 H, [place] # (Auto) 0.4, Eos # (Auto) 0.2, Baso # (Auto) 0.05 I have reviewed the lab results: Yes - RAD Interpretation Narrative RAD Interpretations (Text): 05/15/18 18:04 Transvaginal US HISTORY: lower abdominal pain, h/o endometriosis COMPARISON: Pelvic ultrasound performed 01/02/18 TECHNIQUE: Transvaginal pelvic ultrasound FINDINGS: UTERUS: Measures 7.3 x 4.6 x 5.0 cm. Anteverted. ENDOMETRIUM: Measures 2 mm in diameter. CERVIX: No cervical abnormality identified. RIGHT OVARY: Measures 3.0 x 2.0 x 2.8 cm. Blood flow is demonstrated. LEFT OVARY: Not visualized. FREE FLUID: No significant free fluid noted. OTHER FINDINGS: None. IMPRESSION: The left ovary is not visualized. 1.6 cm posterior uterine fibroid. 05/15/18 20:11 FINDINGS: LUNGS: No focal consolidation. Please note that chest x-ray has limited sensitivity for the detection of pulmonary masses. PLEURA: No significant pleural effusion identified. No definite pneumothorax . CARDIOVASCULAR: Heart size appears within normal limits. No significant atherosclerotic calcification present. OSSEOUS STRUCTURES: No acute osseous abnormality identified. VISUALIZED UPPER ABDOMEN: Unremarkable. OTHER FINDINGS: None. IMPRESSION: No focal consolidation identified. FINDINGS: LOWER THORAX: Unremarkable. LIVER: Hepatomegaly, hepatic steatosis. No focal findings. GALLBLADDER AND BILE DUCTS: Unremarkable. PANCREAS: Unremarkable. No gross lesion or ductal dilatation. SPLEEN: Stable splenomegaly. ADRENALS: Unremarkable. No mass. KIDNEYS AND URETERS: Unremarkable. No hydronephrosis. No solid mass. VASCULATURE: Unremarkable. No aortic aneurysm. No atherosclerotic calcification or mural plaque present. BOWEL: Unremarkable. No obstruction. No gross mural thickening. APPENDIX: Surgically absent. PERITONEUM: Unremarkable. No free fluid. No free air. LYMPH NODES: Unremarkable. No enlarged lymph nodes. BLADDER: Unremarkable. REPRODUCTIVE: Anteverted, fibroid uterus. Findings confirmed on concurrent pelvic ultrasound. BONES: No acute fracture. OTHER FINDINGS: None. IMPRESSION: No acute findings related to/ accounting for the clinical presentation. Stable hepatosplenomegaly. Additional benign and/or incidental findings described above. Overall, no interval change. Radiology Orders: 05/15/18 14:04 ABD & PELVIS IV CONTRAST ONLY [CT] Stat 05/15/18 14:06 CHEST PORTABLE [RAD] Stat TRANSVAGINAL [US] Stat - Medication Orders Current Medication Orders: Discontinued Medications Sodium Chloride (Sodium Chloride 0.9%) 1,000 mls @ 999 mls/hr IV .Q1H1M STA Stop: 05/15/18 15:07 Last Admin: 05/15/18 14:48 Dose: 999 mls/hr eMAR Start Stop Document 05/15/18 14:48 CARLOS (Rec: 05/15/18 14:49 [id number]) Intravenous Solution Start Date 05/15/18 Start Time 14:48 End Date 05/15/18 End time 15:50 Total Infusion Time 62 Ketorolac Tromethamine (Toradol) 30 mg IVP STAT STA Stop: 05/15/18 14:06 Last Admin: 05/15/18 14:49 Dose: 30 mg [facility] Pain Assessment Document 05/15/18 14:49 CARLOS (Rec: 05/15/18 14:50 [facility]-[id number]) Pain Reassessment Is this a pain reassessment? No Sleep Is patient sleeping during reassessment? No Presence of Pain Presence of Pain Yes IVP Administration Document 05/15/18 14:49 CARLOS (Rec: 05/15/18 14:50 [facility]-[id number]) Charges for Administration # of IVP Administrations 1 Re-Assess: MAR Pain Assessment Document 05/15/18 15:49 EB (Rec: 05/15/18 16:09 EB [id number]) Pain Reassessment Is this a pain reassessment? Yes Sleep Is patient sleeping during reassessment? No Presence of Pain Presence of Pain Yes Pain Scale Used Protocol: PSCALES Pain Scale Used Numeric Description Intensity of Pain at present 2 Metoclopramide HCl (Reglan) 10 mg IVP STAT STA Stop: 05/15/18 14:06 Last Admin: 05/15/18 14:49 Dose: 10 mg IVP Administration Document 05/15/18 14:49 CARLOS (Rec: 05/15/18 14:49 CARLOS [id number]) Charges for Administration # of IVP Administrations 1 Potassium Chloride (K-Dur 20 Meq Er Tab) 40 meq PO STAT STA Stop: 05/15/18 15:30 Last Admin: 05/15/18 16:12 Dose: 40 meq Disposition/Present on Arrival - Present on Arrival Any Indicators Present on Arrival: No History of DVT/PE: No History of Uncontrolled Diabetes: No Urinary Catheter: No History of Decub. Ulcer: No History Surgical Site Infection Following: None - Disposition Have Diagnosis and Disposition been Completed?: Yes Diagnosis: UTI (urinary tract infection), Vomiting, Abdominal pain Disposition: HOME/ ROUTINE Disposition Time: 18:40 Patient Plan: Discharge Condition: IMPROVED Discharge Instructions (ExitCare): Urinary Tract Infections in Adults, Acute Abdomen (Belly Pain), Adult (DC) Additional Instructions: Increase fluids Naproxen daily with food as needed for headache Pepcid every 12hours as needed Continue antibiotics for UTI prescribed by OBGYN Followup with GI within 2 days Followup with neurology within 2 days Followup with primary within 2 days Followup with OBGYN as scheduled Return to ER with any new/worsening symptoms Prescriptions: Famotidine [Pepcid] 20 mg PO Q12H PRN #30 tab PRN Reason: reflux Naproxen [Naprosyn] 500 mg PO DAILY PRN #14 tablet PRN Reason: Pain, Moderate (4-7) Referrals: Alisia Schaefer MD [Primary Care Provider] - Follow up with primary Nico Gutiérrez MD [Medical Doctor] - Follow up with primary Delbert Vences MD [Staff Provider] - Follow up with primary Forms: [employer] (Maltese), WORK NOTE
[2018-05-15] MEDS ORDERED: Iohexol 350 MG/100 ML VIAL ONE (17:23)
[2018-05-15 17:53] VITALS: PULSE 77
[2018-05-15 17:54] VITALS: BP 118/72
--- NOTE | 2018-05-15 18:23 | CT ---
Date of service: 05/15/2018 PROCEDURE: CT Abdomen and Pelvis with contrast HISTORY: Abdominal pain, vomiting. Negative test (concurrent with this examination). COMPARISON: 01/02/2018. CT abdomen and pelvis. 05/15/2018 pelvic ultrasound. TECHNIQUE: Intravenous contrast dose: 100 cc Omnipaque 350. Radiation dose: Total exam DLP = 644.75 mGy-cm. This CT exam was performed using one or more of the following dose reduction techniques: Automated exposure control, adjustment of the mA and/or kV according to patient size, and/or use of iterative reconstruction technique. FINDINGS: LOWER THORAX: Unremarkable. LIVER: Hepatomegaly, hepatic steatosis. No focal findings. GALLBLADDER AND BILE DUCTS: Unremarkable. PANCREAS: Unremarkable. No gross lesion or ductal dilatation. SPLEEN: Stable splenomegaly. ADRENALS: Unremarkable. No mass. KIDNEYS AND URETERS: Unremarkable. No hydronephrosis. No solid mass. VASCULATURE: Unremarkable. No aortic aneurysm. No atherosclerotic calcification or mural plaque present. BOWEL: Unremarkable. No obstruction. No gross mural thickening. APPENDIX: Surgically absent. PERITONEUM: Unremarkable. No free fluid. No free air. LYMPH NODES: Unremarkable. No enlarged lymph nodes. BLADDER: Unremarkable. REPRODUCTIVE: Anteverted, fibroid uterus. Findings confirmed on concurrent pelvic ultrasound. BONES: No acute fracture. OTHER FINDINGS: None. IMPRESSION: No acute findings related to/ accounting for the clinical presentation. Stable hepatosplenomegaly. Additional benign and/or incidental findings described above. Overall, no interval change.
[2018-05-15 19:01] VITALS: TEMP 98
== END 2018-05-15 18:59 | disposition home or self-care (01) ==
LOC: ED 12:56
DX: N39.0 Urinary tract infection, site not specified (principal); R11.10 Vomiting, unspecified; R10.9 Unspecified abdominal pain; N80.9 Endometriosis, unspecified
CPT/HCPCS: 71045; 74177; 76830; 80053; 81001; 82150; 83690; 85025; 85610; 85730; 87086; 96361; 96374; 96375; 99285; J1885; J2765; J7030; Q9967